=== PATIENT | female | born 1955 | race Caucasian/White ===

== ENCOUNTER → 2017-04-06 | Outpatient (CLI) | payer OTHER ==
--- NOTE | 2017-04-07 13:21 | MM ---
Reason for exam: screening (asymptomatic). Last mammogram was performed 2 years and 4 months ago. History: Patient is postmenopausal. Family history of breast cancer in sister at age 40. Physical Findings: A clinical breast exam by your physician is recommended on an annual basis and results should be correlated with mammographic findings. MG Screening Mammo w CAD Bilateral CC and MLO view(s) were taken. Prior study comparison: November 27, 2014, bilateral MG screening mammo w CAD. October 26, 2013, bilateral MG screening mammo w CAD. There are scattered fibroglandular densities. Finding: There are typically benign round, diffuse/scattered and grouped calcifications in the right breast. There is no discrete abnormality. ASSESSMENT: Benign, BI-RAD 2 RECOMMENDATION: Routine screening mammogram of both breasts in 1 year.
== END | disposition home or self-care (01) ==
LOC: RADMAMWWP 07:00
PROVIDERS: ATTEND Family Medicine
DX: Z12.31 Encounter for screening mammogram for malignant neoplasm of breast (principal)
CPT/HCPCS: 77067

== ENCOUNTER → 2018-04-07 | Outpatient (CLI) | payer OTHER ==
--- NOTE | 2018-04-07 15:53 | BD ---
EXAMINATION TYPE: Axial Bone Density DATE OF EXAM: 04/07/2018 COMPARISON: 07/30/2010 CLINICAL HISTORY: Postmenopausal female. Osteoporosis screening. Height: 64 IN Weight: 154 LBS FRAX RISK QUESTIONS: Secondary Osteoporosis: Current Tobacco Use: YES RISK FACTORS HISTORY OF: Active: YES Postmenopausal woman: AGE 52 MEDICATIONS: Additional Medications: VIT D, BLOOD PRESSURE MEDS, RESTLESS LEGS MEDS EXAM MEASUREMENTS: Bone mineral densitometry was performed using the [employer]. Bone mineral density as measured about the Lumbar spine is: ----- L1-L4(G/cm2): 1.021 T Score Values are as follows: ----- L2: -1.4 ----- L3: -1.6 ----- L4: -1.2 ----- L1-L4: -1.3 Bone mineral density has: Decreased -13.7% since study of: 07/30/2010 Bone mineral density about the R hip (g/cm2): 0.887 Bone mineral density about the L hip (g/cm2): 0.891 T Score values are as follows: -----R Neck: -1.1 -----L Neck: -1.1 -----R Total: -0.3 -----L Total: 0.1 Bone mineral density has: Decreased -7.4% since study of: 07/30/2010 IMPRESSION: Osteopenia (T Score between -2.5 and -1). There is slightly increased risk of fracture and the patient may be considered for treatment. Re-Screen 2-5 years. NOTE: T-SCORE=SD OF THE YOUNG ADULT MEAN.
--- NOTE | 2018-04-11 07:42 | MM ---
Reason for exam: screening (asymptomatic). Last mammogram was performed 1 year ago. History: Patient is postmenopausal. Family history of breast cancer in sister at age 40. Physical Findings: A clinical breast exam by your physician is recommended on an annual basis and results should be correlated with mammographic findings. MG Screening Mammo w CAD Bilateral CC and MLO view(s) were taken. Prior study comparison: April 06, 2017, bilateral MG screening mammo w CAD. November 27, 2014, bilateral MG screening mammo w CAD. There are scattered fibroglandular densities. Finding: There are four typically benign round, grouped/clustered calcifications in the lower outer quadrant, middle position of the right breast. There is a chronic nodularity in the right breast. No significant changes in finding since April 06, 2017. ASSESSMENT: Benign, BI-RAD 2 RECOMMENDATION: Routine screening mammogram of both breasts in 1 year.
== END | disposition home or self-care (01) ==
LOC: RADMAMWWP 14:21
PROVIDERS: ATTEND Family Medicine
DX: Z12.31 Encounter for screening mammogram for malignant neoplasm of breast (principal); M85.851 Other specified disorders of bone density and structure, right thigh; M85.852 Other specified disorders of bone density and structure, left thigh; M85.88 Other specified disorders of bone density and structure, other site; Z78.0 Asymptomatic menopausal state
CPT/HCPCS: 77067; 77080

== ENCOUNTER 2018-11-09 15:50 | Inpatient (IN) | payer OTHER ==
[2018-11-09] MEDS ORDERED: SODIUM CHLORIDE 0.9% 500 ML 500 ML IV STA (16:45)
[2018-11-09] MEDS ORDERED: SODIUM CHLORIDE 0.9% 1,000 ML IV STA ×2 (16:45)
[2018-11-09] MEDS ORDERED: MORPHINE SULFATE 4 MG/ML SYRINGE IV STA (16:45)
--- NOTE | 2018-11-09 16:51 | ED ---
Abdominal Pain HPI - General Chief Complaint: Abdominal Pain Stated Complaint: Abd Pain Time Seen by Provider: 11/09/18 16:14 Source: patient, RN notes reviewed, old records reviewed Mode of arrival: ambulatory Limitations: no limitations - History of Present Illness Initial Comments: This is a 63-year-old female the ER for evaluation presents today for evaluation regards to abdominal pain. Patient was seen by PA, right lower quadrant and epigastric severe abdominal pain 4 days. Nausea vomiting unable to eat. No appetite. Surgery history includes to prior studies. Positive nausea no current vomiting. No recent travel history or sick contacts. Patient again was seen at urgent care sent ER for further evaluation management. Patient states she feels very bloated with significant abdominal distention MD Complaint: abdominal pain (Right lower quadrant epigastric) -: days(s) (4) Location: RLQ, epigastric Radiation: RLQ Migration to: RLQ Severity: severe Severity scale (1-10): 8 Quality: cramping, stabbing Consistency: constant Improves With: nothing Worsens With: nothing Context: other (None) Associated Symptoms: nausea, vomiting, constipation Treatments Prior to Arrival: NSAIDs - Related Data Home Medications Medication Instructions Recorded Confirmed Ergocalciferol [Vitamin D2] 50,000 unit PO SA 11/09/18 11/09/18 Lisinopril-Hctz 20-12.5 mg 1 tab PO DAILY 11/09/18 11/09/18 [Zestoretic 20-12.5] Montelukast [Singulair] 10 mg PO HS 11/09/18 11/09/18 [place]-3/Dha/Epa/Fish Oil [Fish Oil 1 cap PO DAILY 11/09/18 11/09/18 500 mg Softgel] rOPINIRole HCL [Requip] 0.25 mg PO HS 11/09/18 11/09/18 Allergies Allergy/AdvReac Type Severity Reaction Status Date / Time Iodinated Contrast- Oral and Allergy Rash/Hives Verified 11/09/18 17:12 IV Dye Review of Systems ROS Statement: Those systems with pertinent positive or pertinent negative responses have been documented in the HPI. ROS Other: All systems not noted in ROS Statement are negative. Past Medical History Past Medical History: Hypertension Additional Past Medical History / Comment(s): restless Leg. Sinus History of Any Multi-Drug Resistant Organisms: None Reported Past Surgical History: Section Past Psychological History: No Psychological Hx Reported Smoking Status: Former smoker Past Alcohol Use History: None Reported Past Drug Use History: None Reported General Exam Limitations: no limitations General appearance: alert, in no apparent distress, anxious Head exam: Present: atraumatic, normocephalic, normal inspection Eye exam: Present: normal appearance, PERRL, EOMI. Absent: scleral icterus, conjunctival injection, periorbital swelling ENT exam: Present: normal exam, mucous membranes moist Neck exam: Present: normal inspection. Absent: tenderness, meningismus, lymphadenopathy Respiratory exam: Present: normal lung sounds bilaterally. Absent: respiratory distress, wheezes, rales, rhonchi, stridor Cardiovascular Exam: Present: regular rate, normal rhythm, normal heart sounds. Absent: systolic murmur, diastolic murmur, rubs, gallop, clicks GI/Abdominal exam: Present: soft, distended, tenderness, normal bowel sounds. Absent: guarding (Right lower quadrant), rebound, rigid Extremities exam: Present: normal inspection, full ROM, normal capillary refill. Absent: tenderness, pedal edema, joint swelling, calf tenderness Back exam: Present: normal inspection Neurological exam: Present: alert, oriented X3, CN II-XII intact Psychiatric exam: Present: normal affect, normal mood Skin exam: Present: warm, dry, intact, normal color. Absent: rash Course Vital Signs 11/09/18 11/09/18 11/09/18 15:54 18:36 19:00 Temperature 99 F 98.5 F Pulse Rate 99 94 84 Respiratory 20 18 18 Rate Blood Pressure 134/85 123/79 123/72 O2 Sat by Pulse 99 100 95 Oximetry 11/09/18 20:00 Temperature 98.6 F Pulse Rate 86 Respiratory 18 Rate Blood Pressure 116/68 O2 Sat by Pulse 95 Oximetry - Reevaluation(s) Reevaluation #1: 11/09/18 16:51 Medical records reviewed Reevaluation #2: 11/09/18 21:01 Patient's pain is controlled - Consultations Consultation #1: spoke with Dr Wilson who is okay for admission Medical Decision Making - Medical Decision Making 63 female the ER for evaluation of bowel pain severe acute cholecystitis, will admit, IV antibiotics and pain control, surgery consult - Lab Data Result diagrams: 11/09/18 16:36 11/09/18 16:36 Lab Results 11/09/18 11/09/18 11/09/18 Range/Units 16:36 16:36 16:36 WBC 15.0 H (3.8-10.6) k/uL RBC 4.73 (3.80-5.40) m/uL Hgb 13.9 (11.4-16.0) gm/dL Hct 41.6 (34.0-46.0) % MCV 88.0 (80.0-100.0) fL MCH 29.4 (25.0-35.0) pg MCHC 33.4 (31.0-37.0) g/dL RDW 14.5 (11.5-15.5) % Plt Count 319 (150-450) k/uL Neutrophils % 83 % Lymphocytes % 11 % Monocytes % 4 % Eosinophils % 0 % Basophils % 0 % Neutrophils # 12.4 H (1.3-7.7) k/uL Lymphocytes # 1.7 (1.0-4.8) k/uL Monocytes # 0.6 (0-1.0) k/uL Eosinophils # 0.1 (0-0.7) k/uL Basophils # 0.1 (0-0.2) k/uL PT 9.5 (9.0-12.0) sec INR 0.9 (<1.2) APTT 31.6 H (22.0-30.0) sec Sodium 137 (137-145) mmol/L Potassium 3.9 (3.5-5.1) mmol/L Chloride 95 L (98-107) mmol/L Carbon Dioxide 29 (22-30) mmol/L Anion Gap 13 mmol/L BUN 13 (7-17) mg/dL Creatinine 0.60 (0.52-1.04) mg/dL Est GFR (CKD-EPI)AfAm >90 (>60 ml/min/1.73 sqM) Est GFR (CKD-EPI)NonAf >90 (>60 ml/min/1.73 sqM) Glucose 129 H (74-99) mg/dL Plasma Lactic Acid Ramses (0.7-2.0) mmol/L Calcium 10.7 H (8.4-10.2) mg/dL Total Bilirubin 1.0 (0.2-1.3) mg/dL AST 31 (14-36) U/L ALT 51 (9-52) U/L Alkaline Phosphatase 110 (38-126) U/L Creatine Kinase 76 (30-135) U/L Troponin I (0.000-0.034) ng/mL Total Protein 7.8 (6.3-8.2) g/dL Albumin 4.8 (3.5-5.0) g/dL Amylase 56 (30-110) U/L Lipase 227 (23-300) U/L Urine Color Urine Appearance (Clear) Urine pH (5.0-8.0) Ur Specific [place] (1.001-1.035) Urine Protein (Negative) Urine Glucose (UA) (Negative) Urine Ketones (Negative) Urine Blood (Negative) Urine Nitrite (Negative) Urine Bilirubin (Negative) Urine Urobilinogen (<2.0) mg/dL Ur Leukocyte Esterase (Negative) Ur Squamous Epith Cells (0-4) /hpf Urine Mucus (None) /hpf 11/09/18 11/09/18 11/09/18 Range/Units 16:36 16:36 17:50 WBC (3.8-10.6) k/uL RBC (3.80-5.40) m/uL Hgb (11.4-16.0) gm/dL Hct (34.0-46.0) % MCV (80.0-100.0) fL MCH (25.0-35.0) pg MCHC (31.0-37.0) g/dL RDW (11.5-15.5) % Plt Count (150-450) k/uL Neutrophils % % Lymphocytes % % Monocytes % % Eosinophils % % Basophils % % Neutrophils # (1.3-7.7) k/uL Lymphocytes # (1.0-4.8) k/uL Monocytes # (0-1.0) k/uL Eosinophils # (0-0.7) k/uL Basophils # (0-0.2) k/uL PT (9.0-12.0) sec INR (<1.2) APTT (22.0-30.0) sec Sodium (137-145) mmol/L Potassium (3.5-5.1) mmol/L Chloride (98-107) mmol/L Carbon Dioxide (22-30) mmol/L Anion Gap mmol/L BUN (7-17) mg/dL Creatinine (0.52-1.04) mg/dL Est GFR (CKD-EPI)AfAm (>60 ml/min/1.73 sqM) Est GFR (CKD-EPI)NonAf (>60 ml/min/1.73 sqM) Glucose (74-99) mg/dL Plasma Lactic Acid Ramses 1.2 (0.7-2.0) mmol/L Calcium (8.4-10.2) mg/dL Total Bilirubin (0.2-1.3) mg/dL AST (14-36) U/L ALT (9-52) U/L Alkaline Phosphatase (38-126) U/L Creatine Kinase (30-135) U/L Troponin I <0.012 (0.000-0.034) ng/mL Total Protein (6.3-8.2) g/dL Albumin (3.5-5.0) g/dL Amylase (30-110) U/L Lipase (23-300) U/L Urine Color Yellow Urine Appearance Cloudy H (Clear) Urine pH 6.5 (5.0-8.0) Ur Specific [place] 1.024 (1.001-1.035) Urine Protein Trace H (Negative) Urine Glucose (UA) Negative (Negative) Urine Ketones 1+ H (Negative) Urine Blood Negative (Negative) Urine Nitrite Negative (Negative) Urine Bilirubin Negative (Negative) Urine Urobilinogen <2.0 (<2.0) mg/dL Ur Leukocyte Esterase Negative (Negative) Ur Squamous Epith Cells <1 (0-4) /hpf Urine Mucus Rare H (None) /hpf - Radiology Data Radiology results: report reviewed (CT abdomen pelvis ultrasound gallbladder consistent with cholecystitis), image reviewed Disposition Clinical Impression: Abdominal pain, Acute cholecystitis Disposition: ADMITTED IP TO THIS HOSP Condition: Good Is patient prescribed a controlled substance at d/c from ED?: No Referrals: Tamiko Vincent DO [Primary Care Provider] - 1-2 days
[2018-11-09 17:10] LABS: Appearance,Urine Cloudy (Clear); Bilirubin,Urine Negative (Negative); Blood,Urine Negative (Negative); Color,Urine Yellow; Glucose,Urine (UA) Negative (Negative); Ketones,Urine 1+ (Negative); Leukocyte Esterase,Urine Negative (Negative); Mucus,Urine Rare /hpf; Nitrite,Urine Negative (Negative); PH, Urine 6.5 (5.0-8.0); Protein,Urine Trace (Negative); Specific Gravity,Urine 1.024 (1.001-1.035); Squamous Epithelial Cell,Urine <1 /hpf (0-4); Urobilinogen,Urine <2.0 mg/dL (<2.0)
[2018-11-09 17:11] LABS: Basophils # (A) 0.1 k/uL (0-0.2); Basophils % (A) 0 %; Eosinophils # (A) 0.1 k/uL (0-0.7); Eosinophils % (A) 0 %; HCT 41.6 % (34.0-46.0); HGB 13.9 gm/dL (11.4-16.0); Lymphocytes # (A) 1.7 k/uL (1.0-4.8); Lymphocytes % (A) 11 %; MCH 29.4 pg (25.0-35.0); MCHC 33.4 g/dL (31.0-37.0); Mean Platelet Volume 7.2; Monocytes # (A) 0.6 k/uL (0-1.0); Monocytes % (A) 4 %; Neutrophils # (A) 12.4 k/uL (1.3-7.7); Neutrophils % (A) 83 %; Platelet Count 319 k/uL (150-450); RBC 4.73 m/uL (3.80-5.40); RDW 14.5 % (11.5-15.5)
[2018-11-09 17:19] LABS: ALT 51 U/L (9-52); AST 31 U/L (14-36); African American GFR (CKD) >90 (>60 ml/min/1.73 sqM); Albumin 4.8 g/dL (3.5-5.0); Alkaline Phosphatase 110 U/L (38-126); Amylase 56 U/L (30-110); Anion Gap 13 mmol/L; Blood Urea Nitrogen 13 mg/dL (7-17); Calcium 10.7 mg/dL (8.4-10.2); Carbon Dioxide 29 mmol/L (22-30); Chloride 95 mmol/L (98-107); Creatine Kinase 76 U/L (30-135); Glucose 129 mg/dL (74-99); INR 0.9 (<1.2); Partial Thromboplastin Time 31.6 sec (22.0-30.0); Potassium 3.9 mmol/L (3.5-5.1); Prothrombin Time 9.5 sec (9.0-12.0); Sodium 137 mmol/L (137-145); Total Protein 7.8 g/dL (6.3-8.2)
[2018-11-09] MEDS ORDERED: diphenhydrAMINE 50 MG/ML 1 ML VIAL IVP STA (17:55)
[2018-11-09] MEDS ORDERED: methylPREDNISolone SOD SUCCI 125 MG/2 ML VIAL IV STA (17:55)
[2018-11-09] MEDS ORDERED: FAMOTIDINE 20 MG/2 ML VIAL IV STA (17:55)
--- NOTE | 2018-11-09 19:11 | CT ---
EXAMINATION TYPE: CT abdomen pelvis w con DATE OF EXAM: 11/09/2018 COMPARISON: None HISTORY: Abdominal pain x5 days CT DLP: 864.2 mGycm Automated exposure control for dose reduction was used. TECHNIQUE: Helical acquisition of images was performed from the lung bases through the pelvis. CONTRAST: Performed without Oral Contrast and with IV Contrast, patient injected with 100 mL of Isovue 300. FINDINGS: There is mild atelectasis at the lung bases. There is no pleural effusion. Heart size is normal. Ther e is small hiatal hernia. Liver shows no focal defect. Bile ducts are not dilated. Spleen appears nor mal. There is no pancreatic mass. There is a markedly dilated gallbladder measures 7 cm in diameter. There is pericholecystic fat stranding and fluid. There are numerous calcified gallstones. The bile d ucts are not dilated. There is no adrenal mass. Kidneys show satisfactory contrast opacification. There is no hydronephrosi s. Ureters are not dilated. Appendix appears normal. Bladder distends smoothly. There is no inguinal hernia. There is no free fluid in the pelvis. There is no mesenteric edema. There is no ascites or fr ee air. Lumbar vertebra have normal alignment. Posterior elements are intact. Bony pelvis is intact. There are a few diverticula in the sigmoid colon. IMPRESSION: MARKEDLY DILATED GALLBLADDER WITH GALLSTONES AND PERICHOLECYSTIC FAT STRANDING SUGGESTIVE OF ACUTE AN D CHRONIC CHOLECYSTITIS. SIGMOID DIVERTICULOSIS WITHOUT DIVERTICULITIS.
--- NOTE | 2018-11-09 20:43 | US ---
EXAMINATION TYPE: US gallbladder DATE OF EXAM: 11/09/2018 COMPARISON: CT today 11/09/18. CLINICAL HISTORY: pain. Pain throughout abdomen. Worse in RUQ. HTN. Nausea. Vomiting. EXAM MEASUREMENTS: Liver Length: 15.6 cm Gallbladder Wall: 0.28 cm CBD: 0.80 cm Right Kidney: 10.1 x 4.8 x 5.2 cm Pancreas: appears wnl Liver: appears wnl Gallbladder: Appears distended measuring 10.9 cm in length. Multiple echogenic foci with posterior s hadowing seen within the gallbladder. Internal echoes seen. Evidence for sonographic Olivares's sign: yes CBD: appears dilated Right Kidney: No hydronephrosis or masses seen IMPRESSION: Numerous gallstones. Dilated gallbladder consistent with cholecystitis. No dilated ducts.
[2018-11-09] MEDS ORDERED: MORPHINE SULFATE 4 MG/ML SYRINGE IVP STA (20:59)
[2018-11-09] MEDS ORDERED: ONDANSETRON 4 MG/2 ML VIAL IVP PRN (20:59)
[2018-11-09] MEDS ORDERED: ONDANSETRON 4 MG/2 ML VIAL IVP STA (20:59)
[2018-11-09] MEDS ORDERED: PIPERACILLIN-TAZOBACTAM 3.375 GM in SODIUM CHLORIDE 0.9% 100 ML IVPB STA (20:59)
[2018-11-09 23:38] VITALS: BMI 27.1
[2018-11-10] MEDS: PIPERACILLIN-TAZOBACTAM 3.375 GM in SODIUM CHLORIDE 0.9% 100 ML IVPB SCH ×3 (05:00→21:55)
[2018-11-10 08:15] LABS: Basophils % (A) 0 %; Eosinophils % (A) 0 %; HCT 37.5 % (34.0-46.0); HGB 12.7 gm/dL (11.4-16.0); Lymphocytes # (A) 0.8 k/uL (1.0-4.8); Lymphocytes % (A) 8 %; MCH 30.3 pg (25.0-35.0); MCHC 33.9 g/dL (31.0-37.0); MCV 89.4 fL (80.0-100.0); Mean Platelet Volume 7.4; Monocytes # (A) 0.2 k/uL (0-1.0); Monocytes % (A) 2 %; Neutrophils # (A) 8.5 k/uL (1.3-7.7); Neutrophils % (A) 89 %; Platelet Count 285 k/uL (150-450); RDW 12.7 % (11.5-15.5); WBC 9.6 k/uL (3.8-10.6)
[2018-11-10 08:29] LABS: ALT 68 U/L (9-52); AST 41 U/L (14-36); African American GFR (CKD) >90 (>60 ml/min/1.73 sqM); Albumin 3.6 g/dL (3.5-5.0); Alkaline Phosphatase 84 U/L (38-126); Anion Gap 7 mmol/L; Blood Urea Nitrogen 13 mg/dL (7-17); Calcium 9.5 mg/dL (8.4-10.2); Carbon Dioxide 25 mmol/L (22-30); Chloride 106 mmol/L (98-107); Glucose 150 mg/dL (74-99); Sodium 138 mmol/L (137-145); Total Bilirubin 0.8 mg/dL (0.2-1.3); Total Protein 6.3 g/dL (6.3-8.2)
[2018-11-10] MEDS ORDERED: PANTOPRAZOLE 40 MG/10 ML VIAL IVP SCH (09:00)
[2018-11-10] MEDS: MORPHINE SULFATE 4 MG/ML SYRINGE IVP PRN ×2 (09:08→21:54)
--- NOTE | 2018-11-10 09:40 | P.GSHP ---
<Martina Jaramillo A - Last Filed: 11/10/18 09:38> History of Present Illness H&P Date: 11/10/18 Chief Complaint: abdominal pain CHIEF COMPLAINT: Abdominal pain HISTORY OF PRESENT ILLNESS: 63-year-old female who presents to emergency room with chief complaint of abdominal pain. Patient reports she has been experiencing abdominal pain intermittently for the past week. Pain is mostly in the right upper quadrant and radiates to her upper back. Reports nausea but denies episodes of vomiting. Denies fever or chills. Denies diarrhea or constipation. PAST MEDICAL HISTORY: See list. PAST SURGICAL HISTORY: See list. SOCIAL HISTORY: No illicit drug use. REVIEW OF SYSTEMS: CONSTITUTIONAL: Denies fever or chills. HEENT: Denies blurred vision, vision changes, or eye pain. Denies hemoptysis CARDIOVASCULAR: Denies chest pain or pressure. RESPIRATORY: No shortness of breath. GASTROINTESTINAL: Refer to [facility] for pertinent findings HEMATOLOGIC: Denies bleeding disorders. GENITOURINARY: Denies any blood in urine. SKIN: Denies pruitis. Denies rash. PHYSICAL EXAM: VITAL SIGNS: Reviewed. GENERAL: Well-developed in no acute distress. HEENT: No sclera icterus. Extraocular movements grossly intact. Moist buccal mucosa. Head is atraumatic, normocephalic. ABDOMEN: Soft. Nondistended. Tenderness with palpation to right upper quadrant. NEUROLOGIC: Alert and oriented. Cranial nerves II through XII grossly intact. LABORATORY DATA: WBC on admission 15.0. Repeat 9.6. Bilirubin 0.8. AST 41. ALT 68. Alkaline phosphatase 84. Amylase 56. Lipase 2026. IMAGIN. Gallbladder ultrasound: Numerous gallstones. Dilated gallbladder consistent with cholecystitis. No dilated ducts. 2. CT abdomen and pelvis: Markedly dilated gallbladder with gallstones and pericholecystic fat stranding suggestive of acute and chronic cholecystitis. Sigmoid diverticulosis without diverticulitis. ASSESSMENT: 1. Right upper quadrant abdominal pain 1 week 2. Acute cholecystitis 3. Leukocytosis 4. Diverticulosis, no evidence of acute diverticulitis PLAN: 1. NPO. Continue IV fluids 2. Continue antibiotics. Monitor WBC 3. Patient to undergo laparoscopic cholecystectomy today with Dr. Wilson. Nurse practitioner note has been reviewed by physician. Signing provider agrees with the documented findings, assessment, and plan of care. Past Medical History Past Medical History: Hypertension Additional Past Medical History / Comment(s): restless Leg. Sinus History of Any Multi-Drug Resistant Organisms: None Reported Past Surgical History: Section Past Psychological History: No Psychological Hx Reported Smoking Status: Former smoker Past Alcohol Use History: None Reported Past Drug Use History: None Reported Medications and Allergies Home Medications Medication Instructions Recorded Confirmed Type Ergocalciferol [Vitamin D2] 50,000 unit PO SA 11/09/18 11/09/18 History Lisinopril-Hctz 20-12.5 mg 1 tab PO DAILY 11/09/18 11/09/18 History [Zestoretic 20-12.5] Montelukast [Singulair] 10 mg PO HS 11/09/18 11/09/18 History [place]-3/Dha/Epa/Fish Oil [Fish Oil 1 cap PO DAILY 11/09/18 11/09/18 History 500 mg Softgel] rOPINIRole HCL [Requip] 0.25 mg PO HS 11/09/18 11/09/18 History Allergies Allergy/AdvReac Type Severity Reaction Status Date / Time Iodinated Contrast- Oral and Allergy Rash/Hives Verified 11/09/18 17:12 IV Dye Surgical - Exam Vital Signs Temp Pulse Resp BP Pulse Ox 99 F 99 20 134/85 99 11/09/18 15:54 11/09/18 15:54 11/09/18 15:54 11/09/18 15:54 11/09/18 15:54 Results - Labs 11/10/18 07:21 11/10/18 07:21 Abnormal Lab Results - Last 24 Hours (Table) 11/09/18 11/09/18 11/09/18 Range/Units 16:36 16:36 16:36 WBC 15.0 H (3.8-10.6) k/uL Neutrophils # 12.4 H (1.3-7.7) k/uL Lymphocytes # (1.0-4.8) k/uL APTT 31.6 H (22.0-30.0) sec Chloride 95 L (98-107) mmol/L Glucose 129 H (74-99) mg/dL Calcium 10.7 H (8.4-10.2) mg/dL AST (14-36) U/L ALT (9-52) U/L Urine Appearance (Clear) Urine Protein (Negative) Urine Ketones (Negative) Urine Mucus (None) /hpf 11/09/18 11/10/18 11/10/18 Range/Units 16:36 07:21 07:21 WBC (3.8-10.6) k/uL Neutrophils # 8.5 H (1.3-7.7) k/uL Lymphocytes # 0.8 L (1.0-4.8) k/uL APTT (22.0-30.0) sec Chloride (98-107) mmol/L Glucose 150 H (74-99) mg/dL Calcium (8.4-10.2) mg/dL AST 41 H (14-36) U/L ALT 68 H (9-52) U/L Urine Appearance Cloudy H (Clear) Urine Protein Trace H (Negative) Urine Ketones 1+ H (Negative) Urine Mucus Rare H (None) /hpf Diabetes panel 11/09/18 11/10/18 Range/Units 16:36 07:21 Sodium 137 138 (137-145) mmol/L Potassium 3.9 4.0 (3.5-5.1) mmol/L Chloride 95 L 106 (98-107) mmol/L Carbon Dioxide 29 25 (22-30) mmol/L BUN 13 13 (7-17) mg/dL Creatinine 0.60 0.62 (0.52-1.04) mg/dL Glucose 129 H 150 H (74-99) mg/dL Calcium 10.7 H 9.5 (8.4-10.2) mg/dL AST 31 41 H (14-36) U/L ALT 51 68 H (9-52) U/L Alkaline Phosphatase 110 84 (38-126) U/L Total Protein 7.8 6.3 (6.3-8.2) g/dL Albumin 4.8 3.6 (3.5-5.0) g/dL Calcium panel 11/09/18 11/10/18 Range/Units 16:36 07:21 Calcium 10.7 H 9.5 (8.4-10.2) mg/dL Albumin 4.8 3.6 (3.5-5.0) g/dL Pituitary panel 11/09/18 11/10/18 Range/Units 16:36 07:21 Sodium 137 138 (137-145) mmol/L Potassium 3.9 4.0 (3.5-5.1) mmol/L Chloride 95 L 106 (98-107) mmol/L Carbon Dioxide 29 25 (22-30) mmol/L BUN 13 13 (7-17) mg/dL Creatinine 0.60 0.62 (0.52-1.04) mg/dL Glucose 129 H 150 H (74-99) mg/dL Calcium 10.7 H 9.5 (8.4-10.2) mg/dL Adrenal panel 11/09/18 11/10/18 Range/Units 16:36 07:21 Sodium 137 138 (137-145) mmol/L Potassium 3.9 4.0 (3.5-5.1) mmol/L Chloride 95 L 106 (98-107) mmol/L Carbon Dioxide 29 25 (22-30) mmol/L BUN 13 13 (7-17) mg/dL Creatinine 0.60 0.62 (0.52-1.04) mg/dL Glucose 129 H 150 H (74-99) mg/dL Calcium 10.7 H 9.5 (8.4-10.2) mg/dL Total Bilirubin 1.0 0.8 (0.2-1.3) mg/dL AST 31 41 H (14-36) U/L ALT 51 68 H (9-52) U/L Alkaline Phosphatase 110 84 (38-126) U/L Total Protein 7.8 6.3 (6.3-8.2) g/dL Albumin 4.8 3.6 (3.5-5.0) g/dL <Jagdeep Wilson - Last Filed: 11/10/18 15:33> Surgical - Exam Vital Signs Temp Pulse Resp BP Pulse Ox 99 F 99 20 134/85 99 11/09/18 15:54 11/09/18 15:54 11/09/18 15:54 11/09/18 15:54 11/09/18 15:54 Results - Labs 11/10/18 07:21 11/10/18 07:21 Abnormal Lab Results - Last 24 Hours (Table) 11/09/18 11/09/18 11/09/18 Range/Units 16:36 16:36 16:36 WBC 15.0 H (3.8-10.6) k/uL Neutrophils # 12.4 H (1.3-7.7) k/uL Lymphocytes # (1.0-4.8) k/uL APTT 31.6 H (22.0-30.0) sec Chloride 95 L (98-107) mmol/L Glucose 129 H (74-99) mg/dL Calcium 10.7 H (8.4-10.2) mg/dL AST (14-36) U/L ALT (9-52) U/L Urine Appearance (Clear) Urine Protein (Negative) Urine Ketones (Negative) Urine Mucus (None) /hpf 11/09/18 11/10/18 11/10/18 Range/Units 16:36 07:21 07:21 WBC (3.8-10.6) k/uL Neutrophils # 8.5 H (1.3-7.7) k/uL Lymphocytes # 0.8 L (1.0-4.8) k/uL APTT (22.0-30.0) sec Chloride (98-107) mmol/L Glucose 150 H (74-99) mg/dL Calcium (8.4-10.2) mg/dL AST 41 H (14-36) U/L ALT 68 H (9-52) U/L Urine Appearance Cloudy H (Clear) Urine Protein Trace H (Negative) Urine Ketones 1+ H (Negative) Urine Mucus Rare H (None) /hpf Diabetes panel 11/09/18 11/10/18 Range/Units 16:36 07:21 Sodium 137 138 (137-145) mmol/L Potassium 3.9 4.0 (3.5-5.1) mmol/L Chloride 95 L 106 (98-107) mmol/L Carbon Dioxide 29 25 (22-30) mmol/L BUN 13 13 (7-17) mg/dL Creatinine 0.60 0.62 (0.52-1.04) mg/dL Glucose 129 H 150 H (74-99) mg/dL Calcium 10.7 H 9.5 (8.4-10.2) mg/dL AST 31 41 H (14-36) U/L ALT 51 68 H (9-52) U/L Alkaline Phosphatase 110 84 (38-126) U/L Total Protein 7.8 6.3 (6.3-8.2) g/dL Albumin 4.8 3.6 (3.5-5.0) g/dL Calcium panel 11/09/18 11/10/18 Range/Units 16:36 07:21 Calcium 10.7 H 9.5 (8.4-10.2) mg/dL Albumin 4.8 3.6 (3.5-5.0) g/dL Pituitary panel 11/09/18 11/10/18 Range/Units 16:36 07:21 Sodium 137 138 (137-145) mmol/L Potassium 3.9 4.0 (3.5-5.1) mmol/L Chloride 95 L 106 (98-107) mmol/L Carbon Dioxide 29 25 (22-30) mmol/L BUN 13 13 (7-17) mg/dL Creatinine 0.60 0.62 (0.52-1.04) mg/dL Glucose 129 H 150 H (74-99) mg/dL Calcium 10.7 H 9.5 (8.4-10.2) mg/dL Adrenal panel 11/09/18 11/10/18 Range/Units 16:36 07:21 Sodium 137 138 (137-145) mmol/L Potassium 3.9 4.0 (3.5-5.1) mmol/L Chloride 95 L 106 (98-107) mmol/L Carbon Dioxide 29 25 (22-30) mmol/L BUN 13 13 (7-17) mg/dL Creatinine 0.60 0.62 (0.52-1.04) mg/dL Glucose 129 H 150 H (74-99) mg/dL Calcium 10.7 H 9.5 (8.4-10.2) mg/dL Total Bilirubin 1.0 0.8 (0.2-1.3) mg/dL AST 31 41 H (14-36) U/L ALT 51 68 H (9-52) U/L Alkaline Phosphatase 110 84 (38-126) U/L Total Protein 7.8 6.3 (6.3-8.2) g/dL Albumin 4.8 3.6 (3.5-5.0) g/dL Assessment and Plan Plan: Cholecystitis. Patient will undergo laparoscopic cholecystectomy today.
[2018-11-10] MEDS: HEPARIN SODIUM,PORCINE 5,000 UNIT/ML 1 ML VIAL SQ SCH ×3 (09:58→23:49)
[2018-11-10] MEDS: SODIUM CHLORIDE 0.9% 1,000 ML IV SCH ×2 (12:37→21:12)
[2018-11-10] MEDS ORDERED: BUPIVACAINE (PF) 0.25% 30 ML VIAL SQ ONE (14:02)
[2018-11-10] MEDS ORDERED: IV FLUID CONTINUATION 1,000 ML IV ONE (15:25)
[2018-11-10] MEDS ORDERED: ONDANSETRON 4 MG/2 ML VIAL IVP ONE (15:35)
[2018-11-10] MEDS ORDERED: DEXAMETHASONE SOD PHOSPHATE 10 MG/ML 1 ML VIAL IV ONE (15:35)
[2018-11-10] MEDS ORDERED: MIDAZOLAM 2 MG/2 ML VIAL ONE (15:46)
[2018-11-10] MEDS ORDERED: SUCCINYLCHOLINE CHLORIDE 100 MG/5 ML SYR IV ONE (15:46)
[2018-11-10] MEDS ORDERED: ROCURONIUM BROMIDE 10 MG/ML 10 ML VIAL IV ONE (15:46)
[2018-11-10] MEDS ORDERED: GLYCOPYRROLATE 0.2 MG/ML 2 ML VIAL ONE (15:46)
[2018-11-10] MEDS ORDERED: LIDOCAINE 1% INJ 10MG/ML (20 ML MDV) ONE (15:46)
[2018-11-10] MEDS ORDERED: PROPOFOL 10 MG/ML 20 ML VIAL IV ONE (15:46)
[2018-11-10] MEDS ORDERED: fentaNYL (PF) 50 MCG/ML 2 ML AMP ONE (15:46)
[2018-11-10] MEDS ORDERED: KETOROLAC 30 MG/ML 1 ML VIAL ONE (15:46)
[2018-11-10] MEDS ORDERED: NEOSTIGMINE 1 MG/ML 10 ML VIAL ONE (15:46)
[2018-11-10] MEDS ORDERED: LACTATED RINGERS 1,000 ML IV ONE ×2 (16:32)
--- NOTE | 2018-11-10 16:41 | P.OP ---
Date of Procedure: 11/10/18 Preoperative Diagnosis: Cholecystitis Postoperative Diagnosis: Cholecystitis Cholelithiasis Procedure(s) Performed: Laparoscopic cholecystectomy Anesthesia: YAA Surgeon: Jagdeep Wilson Estimated Blood Loss (ml): 5 Pathology: other (Gallbladder) Condition: stable Disposition: PACU Description of Procedure: The patient was placed on the operating table. The patient received a general endotracheal tube anesthesia. The patients abdomen was prepped and draped in the usual sterile fashion. Through an infraumbilical stab incision, the fascia of the anterior abdominal wall was grasped with a pair of Kochers and then the Veress needle was placed in the peritoneal cavity. Position of the Veress needle was confirmed with positive drop test. The abdomen was then insufflated. After adequate insufflation, the 10 mm trocar was placed in the peritoneal cavity. Following this the laparoscope was placed in the peritoneal cavity. The patient was placed in the head-up, right side up position and then a 5 mm trocar was placed in the right lateral and right subcostal position under direct visualization. A 8 mm trocar was placed in the epigastric position. The gallbladder was grasped in the fundus and infundibulum. Traction on the gallbladder was placed in the lateral and the cephalad positions. The triangle of Calot was visualized.. The cystic duct was bluntly dissected until the union of the cystic duct and common bile duct was seen. A critical view of safety was achieved. The cystic duct was then divided and sealed with the Harmonic scissors. A PDS Endoloop was then placed throughout the cystic duct stump. The cystic artery divided and sealed with the Harmonic scissors. The gallbladder was then removed from the liver bed using Harmonic scissors. The gallbladder was then extracted through the epigastric port site. Operative field was checked for any bleeding spots and Harmonic scissors was used to coagulate the liver bed. The abdomen was irrigated. The trocars were removed. The skin was closed using interrupted 3-0 Vicryl suture. Dermabond dressing were applied. The patient tolerated the procedure well.
[2018-11-10] MEDS ORDERED: HYDROmorphone 1 MG/ML 1 ML SYRINGE IVP ONE ×4 (16:47→17:11)
[2018-11-10] MEDS ORDERED: HYDROmorphone 1 MG/ML 1 ML SYRINGE IVP STA (18:34)
[2018-11-10] MEDS: MONTELUKAST 10 MG TAB PO SCH (21:12)
[2018-11-10] MEDS ORDERED: IPRATROPIUM-ALBUTEROL 3 ML NEB INHALATION PRN (23:58)
--- NOTE | 2018-11-10 23:58 | XR ---
EXAM: XR Chest, 1 View CLINICAL HISTORY: ITS.REASON XR Reason: Chest pain TECHNIQUE: Frontal view of the chest. COMPARISON: No relevant prior studies available. FINDINGS: Lungs: Linear opacities at the bases represent scarring and/or subsegmental atelectasis. Pleural space: Unremarkable. No pneumothorax. Heart: Unremarkable. No cardiomegaly. Mediastinum: Unremarkable. Bones/joints: Unremarkable. Vasculature: Ectatic thoracic aortic arch with atherosclerotic calcifications. IMPRESSION: No acute cardiopulmonary disease.
[2018-11-11] MEDS: PANTOPRAZOLE 40 MG/10 ML VIAL IVP SCH ×2 (00:08→08:29)
[2018-11-11] MEDS: LORazepam 1 MG TAB PO PRN ×2 (00:09→21:19)
[2018-11-11] MEDS: IPRATROPIUM-ALBUTEROL 3 ML NEB INHALATION SCH ×4 (00:42→19:46)
[2018-11-11] MEDS: PIPERACILLIN-TAZOBACTAM 3.375 GM in SODIUM CHLORIDE 0.9% 100 ML IVPB SCH ×3 (05:38→21:12)
[2018-11-11] MEDS: SODIUM CHLORIDE 0.9% 1,000 ML IV SCH ×3 (05:38→17:49)
[2018-11-11] MEDS: MORPHINE SULFATE 4 MG/ML SYRINGE IVP PRN ×3 (05:42→21:19)
[2018-11-11 07:26] LABS: Basophils % (A) 0 %; Eosinophils % (A) 0 %; HCT 35.9 % (34.0-46.0); HGB 11.6 gm/dL (11.4-16.0); Lymphocytes # (A) 1.1 k/uL (1.0-4.8); Lymphocytes % (A) 10 %; MCH 30.1 pg (25.0-35.0); MCHC 32.4 g/dL (31.0-37.0); MCV 93.1 fL (80.0-100.0); Mean Platelet Volume 7.2; Monocytes # (A) 0.4 k/uL (0-1.0); Monocytes % (A) 4 %; Neutrophils # (A) 9.6 k/uL (1.3-7.7); Neutrophils % (A) 85 %; Platelet Count 267 k/uL (150-450); RBC 3.86 m/uL (3.80-5.40); WBC 11.3 k/uL (3.8-10.6)
[2018-11-11 07:45] LABS: African American GFR (CKD) >90 (>60 ml/min/1.73 sqM); Albumin 3.4 g/dL (3.5-5.0); Anion Gap 9 mmol/L; Blood Urea Nitrogen 20 mg/dL (7-17); Calcium 8.9 mg/dL (8.4-10.2); Carbon Dioxide 24 mmol/L (22-30); Chloride 105 mmol/L (98-107); Glucose 133 mg/dL (74-99); Sodium 138 mmol/L (137-145); Total Bilirubin 1.2 mg/dL (0.2-1.3)
[2018-11-11 08:21] LABS: ALT 64 U/L (9-52); AST 43 U/L (14-36); Alkaline Phosphatase 59 U/L (38-126); Potassium 4.2 mmol/L (3.5-5.1)
[2018-11-11] MEDS: LISINOPRIL-HCTZ 20-12.5 MG 1 EACH TAB PO SCH (08:29)
[2018-11-11] MEDS: HEPARIN SODIUM,PORCINE 5,000 UNIT/ML 1 ML VIAL SQ SCH ×3 (08:29→23:55)
--- NOTE | 2018-11-11 10:28 | CONS ---
CONSULTATION REASON FOR CONSULTATION: Advice regarding chest pain and other multiple medical problems requested by Surgery. HISTORY OF PRESENT ILLNESS: This 63-year-old woman with a past medical history of multiple medical problems including hypertension, and being followed Dr. Tamiko Vincent in the outpatient setting admitted after laparoscopic cholecystectomy for cholecystitis and cholelithiasis by Dr. Wilson. The patient is currently complaining of some abdominal discomfort and chest pain also and the troponins are negative. EKG also did not show any acute abnormality. Patient will be closely monitored at this time. There is no history of any fever, rigors. No history of headache, loss of consciousness or seizures. Patient is on broad-spectrum IV antibiotics. WBC was 15 initially, currently is 9.6. PAST MEDICAL HISTORY: History of hypertension, restless legs syndrome, section. MEDICATIONS: Home medications are: 1. [place]-3 fatty acids one p.o. daily. 2. Lisinopril hydrochlorothiazide 20/12.5 mg 1 p.o. daily. 3. Requip 0.25 mg q.h.s. 4. Singulair 10 mg q.h.s. 5. Vitamin D2, 50,000 p.o. Tuesday. 6. [place] 5 mg q.6 p.r.n. 7. Colace 100 mg p.o. b.i.d. ALLERGIES: IODINATED CONTRAST DYE. FAMILY HISTORY: No history of heart disease or strokes in the family. SOCIAL HISTORY: Previous history of smoking. No history of current smoking or alcohol intake. REVIEW OF SYSTEMS: ENT: No diminished hearing or diminished vision. CARDIOVASCULAR SYSTEM: As mentioned earlier. RESPIRATORY SYSTEM: As mentioned earlier. GI: As mentioned earlier. : No dysuria. NERVOUS SYSTEM: No numbness or weakness. ALLERGY/IMMUNOLOGY: No history of asthma. MUSCULOSKELETAL: As mentioned earlier. HEMATOLOGY/ONCOLOGY: No history of anemia. ENDOCRINE: No history of diabetes or hypothyroidism. CONSTITUTIONAL: As mentioned earlier. DERMATOLOGY: Negative. PSYCHIATRY: As mentioned earlier. PHYSICAL EXAMINATION: The patient is alert and oriented x3. Pulse 96, blood pressure 118/68, respiration 20, temperature 98.7, pulse ox 96% on room air. HEENT: Conjunctivae normal. NECK: No jugular venous distention. CARDIOVASCULAR: S1, S2, muffled. RESPIRATORY: Breath sounds diminished at the bases. No rhonchi, no crackles. ABDOMEN: Soft. Mild diffuse postoperative tenderness. No guarding. No rigidity. No mass palpable. Bowel sounds diminished. No ascites . LEGS: No edema, no swelling. NERVOUS SYSTEM: Higher function as mentioned earlier. Moves all 4 limbs. No focal motor or sensory deficits. LYMPHATICS: No lymphadenopathy of the neck, axillae or groin. SKIN: No ulcer, rash or bleeding. JOINTS: No active deforming arthropathy. LABS: WBC 9.2, hemoglobin 12.7, sodium 138, potassium 4. AST is 41, ALT 68. Troponin less than 0.012. ASSESSMENT: 1. Chest pain, abdominal pain postoperatively for evaluation. 2. Status post laparoscopic cholecystectomy for cholelithiasis and cholecystitis. 3. Elevated AST, ALT. 4. Increased WBC present on admission. 5. Elevated random blood sugar. 6. Elevated calcium, present on admission. 7. Hypertension. 8. Restless legs syndrome. 9. History of section. 10.Remote history of nicotine dependence. RECOMMENDATIONS AND DISCUSSION: This 63-year-old woman who presented after surgery at this time I recommend to continue current medications and symptomatic treatment is recommended, proton pump inhibitors. Otherwise, I would also recommend broad-spectrum IV antibiotics. Closely follow with Surgery. DVT prophylaxis. Full cardiac workup including troponins. Further recommendations to follow. A copy forwarded to Dr. Tamiko Vincent who is the primary physician. Thank you Dr. Wilson. ROBIN / LUIS: [id number] / MTDRohini
--- NOTE | 2018-11-11 12:29 | P.PN ---
Subjective Progress Note Date: 11/11/18 CHIEF COMPLAINT: Acute cholecystitis HISTORY OF PRESENT ILLNESS: The patient is a 63-year-old female postop day 1 status post cholecystectomy, 11/10/2018. She reports moderate pain. She is on regular diet. ROS: No reports of nausea and vomiting. No bowel movements. No fevers or chills. No new chest pain. No productive sputum PHYSICAL EXAM: VITAL SIGNS: Reviewed CONSTITUTIONAL: Well developed and in no acute distress. EYES: Conjuctivae without sclera icterus. Extraocular movements grossly intact. HEAD, EARS, NOSE, THROAT: Moist buccal mucosa. Head is atraumatic, normocephalic. Hears conversational speech. No nasal drainage. NECK: Supple. No thyroidomegaly. RESPIRATORY: Non-labored respirations and equal bilateral excursions. CARDIOVASCULAR: Palpable 2+ radial pulses. Regular rate. Regular rhythm. ABDOMEN: Incisions clean dry and intact. No peritonitis. MUSCULOSKELETAL: No gross deformity of the lower extremities noted. No clubbing. No cyanosis. SKIN: Good skin turgor. Well perfused. NEUROLOGIC: Cranial nerves I through XII grossly intact. No focal or lateralizing signs. PSYCH: Appropriate affect. Alert and oriented to person, place and time. CLINCAL LABS: White blood cell count elevated at 13,000. LFTs mildly elevated ASSESSMENT: 1. Acute cholecystitis PLAN: 1. Adjustment of medications for pain control 2. Discharge pending tolerating diet and pain management Objective - Vital Signs Vital signs: Vital Signs Temp 98.1 F 11/11/18 07:10 Pulse 91 11/11/18 07:10 Resp 18 11/11/18 07:10 BP 113/72 11/11/18 07:10 Pulse Ox 93 L 11/11/18 07:10 Intake & Output 11/10/18 11/11/18 11/11/18 18:59 06:59 18:59 Intake Total 1900 460 240 Output Total 20 Balance 1880 460 240 Intake: IV 1800 Sodium Chloride 0.9% 1, 800 000 ml @ 100 mls/hr IV . Q10H [facility] Rx#:[id number] Intake, IV Titration 100 Amount Piperacillin-Tazobactam 3 100 .375 gm In Sodium Chloride 0.9% 100 ml @ 25 mls/hr IVPB Q8H [facility] Rx#: [id number] Oral 100 360 240 Output: Estimated Blood Loss 20 Other: Voiding Method Toilet Toilet # Voids 1 - Labs CBC & Chem 7: 11/11/18 06:50 11/11/18 06:50 Labs: Abnormal Lab Results - Last 24 Hours (Table) 11/11/18 11/11/18 Range/Units 06:50 06:50 WBC 11.3 H (3.8-10.6) k/uL Neutrophils # 9.6 H (1.3-7.7) k/uL BUN 20 H (7-17) mg/dL Glucose 133 H (74-99) mg/dL AST 43 H (14-36) U/L ALT 64 H (9-52) U/L Total Protein 6.0 L (6.3-8.2) g/dL Albumin 3.4 L (3.5-5.0) g/dL Assessment and Plan (1) Abdominal pain Current Visit: Yes Status: Acute Code(s): R10.9 - UNSPECIFIED ABDOMINAL PAIN SNOMED Code(s): 12202970 (2) Acute cholecystitis Current Visit: Yes Status: Acute Code(s): K81.0 - ACUTE CHOLECYSTITIS SNOMED Code(s): 89918241
[2018-11-11] MEDS: KETOROLAC 30 MG/ML 1 ML VIAL IVP SCH ×3 (14:28→23:55)
--- NOTE | 2018-11-11 16:46 | PN ---
PROGRESS NOTE DATE OF SERVICE: 11/11/2018 This 63-year-old woman who underwent laparoscopic cholecystectomy for cholelithiasis and cholecystitis complaining of diffuse abdominal pain and chest pain also. The chest pain is more constricting type of pain, sometimes also increased with respiration. A chest x-ray was done which I reviewed personally which showed no acute pulmonary abnormality. The patient also had an EKG and set of troponins. Also patient closely monitored. PAST MEDICAL HISTORY: Reviewed. REVIEW OF SYSTEM: CARDIOVASCULAR SYSTEM: As mentioned earlier. RESPIRATORY SYSTEM: As mentioned earlier. GI: As mentioned earlier. : No dysuria. NERVOUS SYSTEM: No numbness or weakness. CURRENT MEDICATIONS: Current medications are reviewed and include: 1. DuoNeb t.i.d. and p.r.n. 2. Zestoretic 20 mg daily. 3. Heparin 5000 subcu q.8. 4. Dilaudid 0.5 q.3 p.r.n. 5. Toradol 30 mg q.6. 6. Ativan 0.5 mg p.r.n. 7. Zofran. 8. Protonix. 9. Zosyn IV. 10.Requip. PHYSICAL EXAM: Patient is alert and oriented x3. Pulse is 88, blood pressure 118/68, respiration 18, temperature 99.2, pulse ox 91% on room air. HEENT: Conjunctivae normal. NECK: No jugular venous distention. CARDIOVASCULAR: S1, S2 muffled. RESPIRATORY: Breath sounds diminished in the bases. A few scattered rhonchi. ABDOMEN: Soft, status post surgery. No guarding. No rigidity. No mass palpable. LEGS: No edema. NERVOUS SYSTEM: No focal deficits. LABS: WBC 11.3, hemoglobin 11.6, sodium 138, potassium 4.2. AST, ALT noted as stable. Albumin noted. ASSESSMENT: 1. Chest pain, abdominal pain postoperatively for evaluation. 2. Rule out coronary artery disease. 3. Status post laparoscopic cholecystectomy for cholelithiasis and cholecystitis. 4. Elevated AST, ALT. 5. Increased WBC, present on admission. 6. Elevated random blood sugar. 7. Elevated calcium, present on admission, improved. 8. Hypertension. 9. History of restless legs syndrome. 10.History of section. 11.Remote history of nicotine dependence. RECOMMENDATIONS AND DISCUSSION: Recommend to continue current medications, continue symptomatic treatment. Otherwise, at this time, I recommend proton pump inhibitors. Repeat labs. Troponins are negative so far. Cardiology consultation. Continue to monitor. Follow with Surgery. Further recommendations to follow. MMODL / IJN: [id number] / HAILEY
[2018-11-11] MEDS: PANTOPRAZOLE 40 MG TABLET PO SCH (21:11)
[2018-11-11] MEDS: MONTELUKAST 10 MG TAB PO SCH (21:11)
[2018-11-12] MEDS: PIPERACILLIN-TAZOBACTAM 3.375 GM in SODIUM CHLORIDE 0.9% 100 ML IVPB SCH ×3 (06:14→21:30)
[2018-11-12] MEDS: KETOROLAC 30 MG/ML 1 ML VIAL IVP SCH ×3 (06:14→17:29)
[2018-11-12] MEDS: IPRATROPIUM-ALBUTEROL 3 ML NEB INHALATION SCH ×3 (08:57→20:29)
[2018-11-12] MEDS: SODIUM CHLORIDE 0.9% 1,000 ML IV SCH ×4 (09:47→21:25)
[2018-11-12] MEDS: HEPARIN SODIUM,PORCINE 5,000 UNIT/ML 1 ML VIAL SQ SCH ×2 (09:48→17:29)
[2018-11-12] MEDS: LISINOPRIL-HCTZ 20-12.5 MG 1 EACH TAB PO SCH (09:48)
[2018-11-12] MEDS: PANTOPRAZOLE 40 MG TABLET PO SCH ×2 (09:49→21:25)
--- NOTE | 2018-11-12 11:36 | P.CRDCN ---
History of Present Illness History of present illness: This is a pleasant 63-year-old female past medical history significant for hypertension and chronic nicotine dependence. She states she quit smoking 4 weeks ago. She presented to the hospital with symptoms of abdominal discomfort and was diagnosed with acute cholecystitis. She underwent laparoscopic cholecystectomy Tuesday with Dr. Bhakta. We've been asked to see her in [facility] sultation secondary to chest discomfort. She states yesterday while sitting down she developed a sharp pain in the midsternal region that radiated through to the back. The pain was worse with deep inspiration. She states she has been coughing since surgery and each time she coughs she feels this sharp pain. She denies any associated palpitations, nausea, vomiting, diaphoresis or shortness of breath. EKG obtained prior to surgery revealed sinus mechanism with no acute ST or T wave abnormalities noted. There is not been a repeat EKG since surgery. Chest x-ray is negative for an acute cardiopulmonary process. Laboratory data reviewed, WBC 11.3, hemoglobin 11.6, platelets 267 sodium 138, p otassium 4.2, creatinine 0.74, cardiac enzymes negative 2, AST 43, ALT 64 d- dimer request is 4.38. Current daily cardiac medications include lisinopril/HCTZ 20/12.5 mg daily. At the time of my exam: CONSTITUTIONAL: Denies fever. Denies chills. EYES: Denies blurred vision. Denies vision changes. Denies eye pain. EARS, NOSE, MOUTH & THROAT: Denies headache. Denies sore throat. Denies ear pain. CARDIOVASCULAR: Denies chest pain. Denies shortness of breath. Denies orthopnea. Denies PND. Denies palpitations. RESPIRATORY: Denies cough. GASTROINTESTINAL: Denies abdominal pain. Denies diarrhea. Denies constipation. Denies nausea. Denies vomiting. MUSCULOSKELETAL: Denies myalgias. INTEGUMENTARY: Denies pruitis. Denies rash. NEUROLOGIC: Denies numbness. Denies tingling. Denies weakness. PSYCHIATRIC: Denies anxiety. Denies depression. ENDOCRINE: Denies fatigue. Denies weight change. Denies polydipsia. Denies polyurina. GENITOURINARY: Denies burning, hematuria or urgency with micturation. HEMATOLOGIC: Denies history of anemia. Denies bleeding. Blood pressure 114/75 heart rate 109 temperature of 100.9F maintaining oxygen saturation on room air GENERAL: This is a 63-year-old female in no apparent distress at the time of my examination. HEENT: Head is atraumatic, normocephalic. Pupils are equal, round. Sclerae anicteric. Conjunctivae are clear. Mucous membranes of the mouth are moist. Neck is supple. There is no jugular venous distention. No carotid bruit is heard. LUNGS: Clear to auscultation no wheezes, rales or rhonchi. No chest wall tenderness is noted on palpation or with deep breathing. HEART: Regular rate and rhythm without murmurs, rubs or gallops. S1 and S2 hear d. ABDOMEN: Soft, mildly tender. Bowel sounds are heard. No organomegaly noted. EXTREMITIES: No evidence of peripheral edema and no calf tenderness noted. VASCULAR: Radial and dorsalis pedis pulses palpated, no evidence of clubbing. NEUROLOGIC: Patient is awake, alert and oriented x3. ASSESSMENT Pleuritic chest pain, atypical for angina. Status post cholecystectomy Hypertension PLAN Repeat EKG. D-dimer was requested and came to be abnormal. We will request a stat CTA of the chest to rule out pulmonary embolism. Obtain 2-D echocardiogram and Doppler study to assess cardiac structure and function. Thank you kindly for this consultation. Nurse Practitioner note has been reviewed, I agree with a documented findings and plan of care. Patient was seen and examined. Past Medical History Past Medical History: Hypertension Additional Past Medical History / Comment(s): restless Leg. Sinus History of Any Multi-Drug Resistant Organisms: None Reported Past Surgical History: Section Past Psychological History: No Psychological Hx Reported Smoking Status: Former smoker Past Alcohol Use History: None Reported Past Drug Use History: None Reported Medications and Allergies Home Medications Medication Instructions Recorded Confirmed Type Ergocalciferol [Vitamin D2] 50,000 unit PO SA 11/09/18 11/09/18 History Lisinopril-Hctz 20-12.5 mg 1 tab PO DAILY 11/09/18 11/09/18 History [Zestoretic 20-12.5] Montelukast [Singulair] 10 mg PO HS 11/09/18 11/09/18 History Odin-3/Dha/Epa/Fish Oil [Fish Oil 1 cap PO DAILY 11/09/18 11/09/18 History 500 mg Softgel] rOPINIRole HCL [Requip] 0.25 mg PO HS 11/09/18 11/09/18 History Docusate [Colace] 100 mg PO BID #20 capsule 11/10/18 Rx HYDROcodone/APAP 5-325MG [[place] 1 tab PO Q6HR PRN #10 tab 11/10/18 Rx 5-325] Allergies Allergy/AdvReac Type Severity Reaction Status Date / Time Iodinated Contrast- Oral and Allergy Rash/Hives Verified 11/09/18 17:12 IV Dye Physical Exam Vitals: Vital Signs Temp Pulse Resp BP Pulse Ox 11/12/18 06:50 100.9 F H 109 H 20 114/75 92 L 11/12/18 00:58 99.0 F 96 16 101/55 95 11/11/18 21:00 97.8 F 98 20 107/68 93 L 11/11/18 15:00 99.1 F 97 16 106/67 94 L Intake and Output 11/11/18 11/12/18 11/12/18 22:59 06:59 14:59 Intake Total 340 440 240 Output Total 400 900 Balance -60 -460 240 Intake: IV 100 Sodium Chloride 0.9% 1, 100 000 ml @ 100 mls/hr IV . Q10H [facility] Rx#:[id number] Intake, IV Titration 100 100 Amount Piperacillin-Tazobactam 3 100 100 .375 gm In Sodium Chloride 0.9% 100 ml @ 25 mls/hr IVPB Q8H [facility] Rx#: [id number] Oral 240 240 240 Output: Urine 400 900 Other: Voiding Method Toilet Toilet # Voids 1 1 Results 11/11/18 06:50 11/11/18 06:50 Current Medications Generic Name Dose Route Start Last Admin Trade Name Freq PRN Reason Stop Dose Admin Albuterol/Ipratropium 3 ml 11/10/18 23:58 11/12/18 08:57 Duoneb 0.5 Mg-3 Mg/3 Ml Soln INHALATION Not Given RT-TID [facility] Albuterol/Ipratropium 3 ml 11/10/18 23:58 Duoneb 0.5 Mg-3 Mg/3 Ml Soln INHALATION RT-TID PRN Shortness Of Breath Or Wheezing Lisinopril/HCTZ 1 each 11/11/18 09:00 11/12/18 09:48 Zestoretic 20-12.5 PO 1 each DAILY [facility] Administration Heparin Sodium (Porcine) 5,000 unit 11/10/18 08:00 11/12/18 09:48 Heparin SQ 5,000 unit Q8HR [facility] Administration Hydromorphone HCl 0.5 mg 11/10/18 23:38 Dilaudid IVP Q3HR PRN Pain Piperacillin Sod/Tazobactam 100 mls @ 25 mls/hr 11/10/18 06:00 11/12/18 06:14 Sod 3.375 gm/ Sodium Chloride IVPB 25 mls/hr Q8H [facility] Administration Sodium Chloride 1,000 mls @ 100 mls/hr 11/10/18 06:30 11/12/18 09:47 Saline 0.9% IV 100 mls/hr .Q10H [facility] Administration Ketorolac Tromethamine 30 mg 11/11/18 12:30 11/12/18 06:14 Toradol IVP 11/15/18 12:29 30 mg Q6HR [facility] Administration Lorazepam 0.5 mg 11/10/18 23:36 11/11/18 21:19 Ativan PO 0.5 mg Q6HR PRN Administration Anxiety Montelukast Sodium 10 mg 11/10/18 21:00 11/11/18 21:11 Singulair PO 10 mg HS [facility] Administration Morphine Sulfate 4 mg 11/09/18 20:59 11/11/18 21:19 Morphine Sulfate (Inj) IVP 4 mg Q4HR PRN Administration Pain Ondansetron HCl 4 mg 11/09/18 20:59 Zofran IVP Q6HR PRN Nausea And Vomiting Pantoprazole Sodium 40 mg 11/11/18 21:00 11/12/18 09:49 Protonix PO 40 mg BID [facility] Administration Ropinirole HCl 0.25 mg 11/10/18 21:00 11/11/18 21:11 Requip PO 0.25 mg HS [facility] Administration Intake and Output 11/11/18 11/12/18 11/12/18 22:59 06:59 14:59 Intake Total 340 440 240 Output Total 400 900 Balance -60 -460 240 Intake: IV 100 Sodium Chloride 0.9% 1, 100 000 ml @ 100 mls/hr IV . Q10H [facility] Rx#:[id number] Intake, IV Titration 100 100 Amount Piperacillin-Tazobactam 3 100 100 .375 gm In Sodium Chloride 0.9% 100 ml @ 25 mls/hr IVPB Q8H [facility] Rx#: [id number] Oral 240 240 240 Output: Urine 400 900 Other: Voiding Method Toilet Toilet # Voids 1 1 11/11/18 06:50 11/11/18 06:50
[2018-11-12 12:35] LABS: Basophils % (A) 0 %; Eosinophils # (A) 0.1 k/uL (0-0.7); Eosinophils % (A) 1 %; HCT 33.8 % (34.0-46.0); HGB 11.1 gm/dL (11.4-16.0); Lymphocytes # (A) 1.3 k/uL (1.0-4.8); Lymphocytes % (A) 10 %; MCH 30.2 pg (25.0-35.0); MCV 91.5 fL (80.0-100.0); Mean Platelet Volume 8.6; Monocytes # (A) 0.4 k/uL (0-1.0); Monocytes % (A) 3 %; Neutrophils # (A) 10.9 k/uL (1.3-7.7); Neutrophils % (A) 85 %; Platelet Count 270 k/uL (150-450); RDW 13.9 % (11.5-15.5); WBC 12.9 k/uL (3.8-10.6)
[2018-11-12 12:40] LABS: ALT 49 U/L (9-52); AST 24 U/L (14-36); African American GFR (CKD) >90 (>60 ml/min/1.73 sqM); Alkaline Phosphatase 95 U/L (38-126); Anion Gap 10 mmol/L; Blood Urea Nitrogen 12 mg/dL (7-17); Calcium 8.6 mg/dL (8.4-10.2); Carbon Dioxide 25 mmol/L (22-30); Chloride 103 mmol/L (98-107); Glucose 152 mg/dL (74-99); Potassium 3.2 mmol/L (3.5-5.1); Sodium 138 mmol/L (137-145); Total Bilirubin 1.2 mg/dL (0.2-1.3); Total Protein 5.6 g/dL (6.3-8.2)
--- NOTE | 2018-11-12 12:41 | P.PN ---
Subjective Progress Note Date: 11/12/18 CHIEF COMPLAINT: Acute cholecystitis HISTORY OF PRESENT ILLNESS: The patient is a 63-year-old female postop day 2 status post cholecystectomy, 11/10/2018. She feels much better today. In fact, she is enjoying a meatloaf lunch. Her is at bedside who reports orange to dark urine. Her pain is well controlled. She has been seen by cardiology who now is seeking additional work-up for elevated D-dimer. ROS: No reports of nausea and vomiting. No bowel movements. Fever 100.9. PHYSICAL EXAM: VITAL SIGNS: Reviewed CONSTITUTIONAL: Well developed and in no acute distress. EYES: Conjuctivae without sclera icterus. Extraocular movements grossly intact. HEAD, EARS, NOSE, THROAT: Moist buccal mucosa. Head is atraumatic, normocephalic. Hears conversational speech. No nasal drainage. NECK: Supple. No thyroidomegaly. RESPIRATORY: Non-labored respirations and equal bilateral excursions. CARDIOVASCULAR: Palpable 2+ radial pulses. Regular rate. Regular rhythm. ABDOMEN: Incisions clean dry and intact. No peritonitis. MUSCULOSKELETAL: No gross deformity of the lower extremities noted. No clubbing. No cyanosis. SKIN: Good skin turgor. Well perfused. NEUROLOGIC: Cranial nerves I through XII grossly intact. No focal or lateralizing signs. PSYCH: Appropriate affect. Alert and oriented to person, place and time. CLINCAL LABS: White blood cell count elevated at 13,000. LFTs mildly elevated. Labs pending. ASSESSMENT: 1. Acute cholecystitis PLAN: 1. Pending CBC including comprehensive metabolic panel with new fevers 2. Education for incentive spirometer 3. Clinically, she looks much better than yesterday. Discharge today held for current cardiac work-up 4. Fluid bolus for oliguria and dehydration Objective - Vital Signs Vital signs: Vital Signs Temp 100.9 F H 11/12/18 06:50 Pulse 109 H 11/12/18 06:50 Resp 20 11/12/18 06:50 BP 114/75 11/12/18 06:50 Pulse Ox 92 L 11/12/18 06:50 Intake & Output 11/11/18 11/12/18 11/12/18 18:59 06:59 18:59 Intake Total 480 780 240 Output Total 400 900 Balance 80 -120 240 Intake: IV 100 Sodium Chloride 0.9% 1, 100 000 ml @ 100 mls/hr IV . Q10H [facility] Rx#:[id number] Intake, IV Titration 200 Amount Piperacillin-Tazobactam 3 200 .375 gm In Sodium Chloride 0.9% 100 ml @ 25 mls/hr IVPB Q8H [facility] Rx#: [id number] Oral 480 480 240 Output: Urine 400 900 Other: Voiding Method Toilet # Voids 2 1 - Labs CBC & Chem 7: 11/12/18 09:19 11/11/18 06:50 Labs: Abnormal Lab Results - Last 24 Hours (Table) 11/12/18 Range/Units 09:19 D-Dimer 4.38 H (<0.60) mg/L FEU Assessment and Plan (1) Abdominal pain Current Visit: Yes Status: Acute Code(s): R10.9 - UNSPECIFIED ABDOMINAL PAIN SNOMED Code(s): 91500344 (2) Acute cholecystitis Current Visit: Yes Status: Acute Code(s): K81.0 - ACUTE CHOLECYSTITIS SNOMED Code(s): 94011627
[2018-11-12] MEDS ORDERED: diphenhydrAMINE 50 MG/ML 1 ML VIAL IVP ONE (13:03)
[2018-11-12] MEDS ORDERED: methylPREDNISolone SOD SUCCI 125 MG/2 ML VIAL IV ONE (13:03)
[2018-11-12] MEDS ORDERED: FAMOTIDINE 20 MG/2 ML VIAL IV ONE (13:03)
[2018-11-12] MEDS ORDERED: Potassium Replacement Protocol 1 EACH MISC MISCELLANE PRN ×2 (18:49→19:02)
--- NOTE | 2018-11-12 19:28 | CT ---
EXAMINATION TYPE: CT angio chest DATE OF EXAM: 11/12/2018 COMPARISON: CT abdomen pelvis study 3 days earlier. HISTORY: elevated d-dimer CT DLP: 352.1 mGycm. Automated Exposure Control for Dose Reduction was Utilized. CONTRAST: CTA scan of the thorax is performed with IV Contrast, patient injected with 80cc mL of Isovue 370, pu lmonary embolism protocol. MIP Images are created on CT scanner and reviewed. FINDINGS: LUNGS: Suboptimal as is degraded by respiratory motion artifact. There is tiny left pleural effusion. There is bilateral lower lung atelectasis and/or consolidation. No pneumothorax is seen bilaterally. MEDIASTINUM: There is satisfactory enhancement of the pulmonary artery and its branches, there is no CT evidence for pulmonary embolism. There are no greater than 1 cm hilar or mediastinal lymph nodes. No cardiomegaly or pericardial effusion is seen. Greater than 1 cm right thyroid nodule axial imag e 4. Follow-up advised. OTHER: [id number] multilevel spurring in the spine. New heterogeneous fluid and fat stranding in the visualized upper to mid abdomen perhaps product of i nterval surgery from CT abdomen study 3 days earlier. There are now several floating rim calcified ga llstones in the visualized upper abdominal peritoneal cavity. There is ill-defined fluid at level of the gallbladder fossa on current study nonspecific. IMPRESSION: 1. No CT evidence for acute pulmonary embolism. 2. New tiny left pleural effusion with bibasilar atelectasis and/or consolidation. 3. Confirmation of interval laparoscopic cholecystectomy by patient's nurse via telephone. Nonspecifi c ill-defined fluid and fat stranding in the upper to mid abdomen with more prominent ill-defined flu id at level of gallbladder fossa. Peritonitis cannot be excluded. Floating intraperitoneal rim calcif ied gallstones are now noted. 4. Greater than 1 cm right thyroid nodule. Nonurgent thyroid ultrasound follow-up is advised. Case discussed with patient's nurse via telephone at time of dictation.
[2018-11-12] MEDS: POTASSIUM CHLORIDE ER 20 MEQ TAB.ER PO SCH ×2 (19:35→21:25)
--- NOTE | 2018-11-12 21:04 | PN ---
PROGRESS NOTE DATE OF SERVICE: 11/12/2018 This 63-year-old woman who was admitted after laparoscopic cholecystectomy, had chest pain and abdominal pain. Cardiology following the patient closely as well as Surgery. No chest pain or palpitation at this time. PHYSICAL EXAM: Alert and oriented x3. Pulse is 102, blood pressure is 140/70, respiration 18, temp is 98.8 and T-max 100.9, pulse ox 93% on room air. HEENT: Conjunctivae normal. Oral mucosa moist. NECK: No jugular venous distention. No lymph node enlargement. CARDIOVASCULAR: S1, S2. RESPIRATORY: Diminished breath sounds at the bases. Scattered rhonchi. ABDOMEN: Soft, status post surgery. LEGS: No swelling. NERVOUS SYSTEM: No focal deficits. LABS: WBC 12.2, hemoglobin 11.1, and D-dimer is 4.38. ASSESSMENT: 1. Chest pain, abdominal pain postoperative for evaluation. 2. Rule out coronary artery disease. 3. Status post laparoscopic cholecystectomy for cholelithiasis and cholecystitis. 4. Elevated D-dimer. 5. Elevated AST, ALT. 6. Increased WBC present on admission. 7. Elevated random blood sugar. 8. Elevated calcium, present on admission, improved. 9. Hypertension. 10.History of restless legs syndrome. 11.History of section. 12.Remote history of nicotine dependence. RECOMMENDATIONS AND DISCUSSION: Recommend to continue current medications, continue to monitor, symptomatic treatment. Otherwise, closely follow with Surgery and Cardiology. Cardiology has recommended CT angio chest and as well as 2D echo. We will continue to monitor. Dr. Cooper will follow. MMODL / IJN: [id number] /
[2018-11-12] MEDS: MONTELUKAST 10 MG TAB PO SCH (21:25)
[2018-11-13] MEDS: HEPARIN SODIUM,PORCINE 5,000 UNIT/ML 1 ML VIAL SQ SCH ×3 (00:40→17:13)
[2018-11-13] MEDS: KETOROLAC 30 MG/ML 1 ML VIAL IVP SCH ×4 (00:40→17:13)
[2018-11-13] MEDS: PIPERACILLIN-TAZOBACTAM 3.375 GM in SODIUM CHLORIDE 0.9% 100 ML IVPB SCH (06:03)
[2018-11-13] MEDS: SODIUM CHLORIDE 0.9% 1,000 ML IV SCH ×2 (06:04→17:15)
[2018-11-13] MEDS: IPRATROPIUM-ALBUTEROL 3 ML NEB INHALATION SCH ×3 (07:53→21:09)
[2018-11-13] MEDS ORDERED: BISACODYL 10 MG SUPP RECTAL STA (08:56)
--- NOTE | 2018-11-13 09:25 | P.PN ---
Subjective Progress Note Date: 11/13/18 Christy Li is a 63-year-old female who underwent laparoscopic cholecystectomy. She experienced postoperative chest pain and abdominal pain. Cardiology is following, and planning for 2-D echo today. Currently, patient denies any further chest pain but does feel discomfort with inspiration. She is passing gas but has not yet had a bowel movement. She complains of leg swelling. Objective - Vital Signs Vital signs: Vital Signs Temp 97.6 F 11/13/18 07:24 Pulse 84 11/13/18 08:04 Resp 16 11/13/18 07:24 BP 128/77 11/13/18 07:24 Pulse Ox 93 L 11/13/18 07:24 Intake & Output 11/12/18 11/13/18 11/13/18 18:59 06:59 18:59 Intake Total 2370 920 Balance 2370 920 Intake: IV 300 Sodium Chloride 0.9% 1, 300 000 ml @ 100 mls/hr IV . Q10H [facility] Rx#:[id number] Intake, IV Titration 1100 200 Amount Piperacillin-Tazobactam 3 200 .375 gm In Sodium Chloride 0.9% 100 ml @ 25 mls/hr IVPB Q8H [facility] Rx#: [id number] Sodium Chloride 0.9% 1, 100 000 ml @ 100 mls/hr IV . Q10H [facility] Rx#:[id number] Sodium Chloride 0.9% 1, 1000 000 ml @ 999 mls/hr IV . Q1H1M [facility] Rx#:[id number] Oral 970 720 Other: Voiding Method Toilet # Voids 2 1 - Exam General. Well-developed well-nourished note apparent distress. Vitals reviewed. HEENT. Mucous membranes moist CV. Regular rate and rhythm no murmurs. Peripheral pulses 2+ Lungs. Normal inspiratory effort, crackles at bases. no wheezing or rhonchi Abdomen. Soft generalized tenderness throughout. Laparoscopic incisions clean, no erythema Extremity. 1+ edema bilateral lower extremities - Labs CBC & Chem 7: 11/12/18 09:11/12/18 22:58 Labs: Abnormal Lab Results - Last 24 Hours (Table) 11/12/18 11/12/18 11/12/18 Range/Units : 09: 09: WBC 12.9 H (3.8-10.6) k/uL RBC 3.70 L (3.80-5.40) m/uL Hgb 11.1 L (11.4-16.0) gm/dL Hct 33.8 L (34.0-46.0) % Neutrophils # 10.9 H (1.3-7.7) k/uL D-Dimer 4.38 H (<0.60) mg/L FEU Potassium 3.2 L (3.5-5.1) mmol/L Glucose 152 H (74-99) mg/dL Total Protein 5.6 L (6.3-8.2) g/dL Albumin 3.0 L (3.5-5.0) g/dL Assessment and Plan (1) Chest pain Current Visit: Yes Status: Acute Code(s): R07.9 - CHEST PAIN, UNSPECIFIED SNOMED Code(s): 43253367 (2) Elevated d-dimer Current Visit: Yes Status: Acute Code(s): R79.89 - OTHER SPECIFIED ABNORMAL FINDINGS OF BLOOD CHEMISTRY SNOMED Code(s): 209671155 (3) Abdominal pain Current Visit: Yes Status: Acute Code(s): R10.9 - UNSPECIFIED ABDOMINAL PAIN SNOMED Code(s): 60796816 (4) Acute cholecystitis Current Visit: Yes Status: Acute Code(s): K81.0 - ACUTE CHOLECYSTITIS SNOMED Code(s): 38347308 Plan: 1. Chest pain/abdominal pain. Suspect secondary to recent surgery. ACS ruled out. Cardiology following, CTA chest showing fat stranding and fluid around the gallbladder fossa. Plan for echocardiogram today. Switch IV antibiotics to Levaquin, anticipate discharge tomorrow and patient will complete course of antibiotics
[2018-11-13] MEDS: LISINOPRIL-HCTZ 20-12.5 MG 1 EACH TAB PO SCH (10:13)
[2018-11-13] MEDS: PANTOPRAZOLE 40 MG TABLET PO SCH ×2 (10:13→20:12)
[2018-11-13] MEDS: HYDROmorphone 0.5 MG/0.5 ML SYRINGE IVP PRN (10:22)
--- NOTE | 2018-11-13 11:35 | P.PN ---
Subjective This is a pleasant 63-year-old female past medical history significant for hypertension and chronic nicotine dependence. She states she quit smoking 4 weeks ago. She presented to the hospital with symptoms of abdominal discomfort and was diagnosed with acute cholecystitis. She underwent laparoscopic cholecystectomy Tuesday with Dr. Wsie. We were asked to see for chest pain. Pain is respirophasic and associated with deep inspiration. She is seen and examined sitting up in the chair in no acute distress. CTA chest performed yes terday was negative for PE, tiny left pleural effusion, fluid and fat stranding in the upper to mid abdomen, peritonitis cannot be excluded and thyroid nodule noted. She denies ongoing chest discomfort. She does however, have mild lower extremity edema. She also denies shortness of breath, dizziness or palpitations. Blood pressure 128/77 heart rate 84 afebrile and maintaining oxygen saturation on room air. GENERAL: This is a 63-year-old female in no apparent distress at the time of my examination. HEENT: Head is atraumatic, normocephalic. Pupils are equal, round. Sclerae anicteric. Conjunctivae are clear. Mucous membranes of the mouth are moist. Neck is supple. There is no jugular venous distention. No carotid bruit is heard. LUNGS: Clear to auscultation no wheezes, rales or rhonchi. No chest wall tenderness is noted on palpation or with deep breathing. HEART: Regular rate and rhythm without murmurs, rubs or gallops. S1 and S2 heard. EXTREMITIES: Trace bilateral lower extremity peripheral edema and no calf tenderness noted. ASSESSMENT Pleuritic chest pain, atypical for angina. Status post cholecystectomy Hypertension PLAN Echo has been obtained and will be reviewed. Stable from a cardiac perspective. Ongoing medical management. Nurse Practitioner note has been reviewed, I agree with a documented findings and plan of care. Patient was seen and examined. Objective - Vital Signs Vital signs: Vital Signs Temp 97.6 F 11/13/18 07:24 Pulse 84 11/13/18 08:04 Resp 16 11/13/18 07:24 BP 128/77 11/13/18 07:24 Pulse Ox 93 L 11/13/18 07:24 Intake & Output 11/12/18 11/13/18 11/13/18 18:59 06:59 18:59 Intake Total 2370 920 Balance 2370 920 Intake: IV 300 Sodium Chloride 0.9% 1, 300 000 ml @ 100 mls/hr IV . Q10H [facility] Rx#:[id number] Intake, IV Titration 1100 200 Amount Piperacillin-Tazobactam 3 200 .375 gm In Sodium Chloride 0.9% 100 ml @ 25 mls/hr IVPB Q8H [facility] Rx#: [id number] Sodium Chloride 0.9% 1, 100 000 ml @ 100 mls/hr IV . Q10H [facility] Rx#:[id number] Sodium Chloride 0.9% 1, 1000 000 ml @ 999 mls/hr IV . Q1H1M [facility] Rx#:[id number] Oral 970 720 Other: Voiding Method Toilet # Voids 2 1 - Labs CBC & Chem 7: 11/12/18 09:19 11/12/18 22:58 Labs: Abnormal Lab Results - Last 24 Hours (Table) 11/12/18 11/12/18 Range/Units :19 09:19 WBC 12.9 H (3.8-10.6) k/uL RBC 3.70 L (3.80-5.40) m/uL Hgb 11.1 L (11.4-16.0) gm/dL Hct 33.8 L (34.0-46.0) % Neutrophils # 10.9 H (1.3-7.7) k/uL Potassium 3.2 L (3.5-5.1) mmol/L Glucose 152 H (74-99) mg/dL Total Protein 5.6 L (6.3-8.2) g/dL Albumin 3.0 L (3.5-5.0) g/dL
--- NOTE | 2018-11-13 12:00 | ECHOF ---
Referral Reason:cp, sob MEASUREMENTS -------- HEIGHT: 162.6 cm WEIGHT: 71.7 kg BP: RVIDd: 2.4 cm (< 3.3) IVSd: 1.0 cm (0.6 - 1.1) LVIDd: 4.1 cm (3.9 - 5.3) LVPWd: 0.9 cm (0.6 - 1.1) IVSs: 1.4 cm LVIDs: 2.7 cm LVPWs: 1.2 cm LA Diam: 2.3 cm (2.7 - 3.8) Ao Diam: 3.2 cm (2.0 - 3.7) AV Cusp: 2.2 cm (1.5 - 2.6) LA Diam: 3.4 cm (2.7 - 3.8) MV EXCURSION: 19.523 mm (> 18.000) MV EF SLOPE: 118 mm/s (70 - 150) EPSS: 0.3 cm MV E Rishabh: 0.92 m/s MV DecT: 190 ms MV A Rishabh: 1.20 m/s MV E/A Ratio: 0.77 RAP: 5.00 mmHg RVSP: 13.09 mmHg FINDINGS -------- Sinus rhythm. This was a technically adequate study. The left ventricular size is normal. There is mild concentric left ventricular hypertrophy. Overa ll left ventricular systolic function is normal with, an EF between 55 - 60 %. The diastolic fillin g pattern is normal for the age of the patient 6.68. The right ventricle is normal in size. The left atrial size is normal. The right atrial size is normal. The aortic valve is trileaflet, and appears structurally normal. No aortic stenosis or regurgitation. The mitral valve is normal. Mild mitral regurgitation is present. Mild tricuspid regurgitation present. There is no evidence of pulmonary hypertension. The right v entricular systolic pressure, as measured by Doppler, is 13.09mmHg. The pulmonic valve was not well visualized. There is no pulmonic regurgitation present. The aortic root size is normal. There is no pericardial effusion. No subcostals due to surgery. CONCLUSIONS -------- 1. Sinus rhythm. 2. This was a technically adequate study. 3. The left ventricular size is normal. 4. There is mild concentric left ventricular hypertrophy. 5. Overall left ventricular systolic function is normal with, an EF between 55 - 60 %. 6. The diastolic filling pattern is normal for the age of the patient 6.68 7. The left atrial size is normal. 8. The aortic valve is trileaflet, and appears structurally normal. No aortic stenosis or regurgitati on. 9. Mild mitral regurgitation is present. 10. Mild tricuspid regurgitation present. 11. There is no evidence of pulmonary hypertension. 12. The pulmonic valve was not well visualized. 13. There is no pulmonic regurgitation present. 14. The aortic root size is normal. 15. There is no pericardial effusion. 16. No subcostals due to surgery. LIMOUSINE DRIVER: Bree Houston RDCS
--- NOTE | 2018-11-13 12:01 | P.PN ---
Subjective Progress Note Date: 11/13/18 CHIEF COMPLAINT: Cholecystitis, cholelithiasis HISTORY OF PRESENT ILLNESS: Patient is status post laparoscopic cholecystectomy performed on 11/10/18. Patient examined this morning. She is sitting up in the chair. Abdominal pain is tolerable. Denies nausea or vomiting. Tolerating diet. Passing flatus. Denies BM. Has been ambulating in the halls. Cardiology follow ing for chest pain. PHYSICAL EXAM: VITAL SIGNS: Reviewed. GENERAL: Well-developed in no acute distress. HEENT: No sclera icterus. Extraocular movements grossly intact. Moist buccal mucosa. Head is atraumatic, normocephalic. ABDOMEN: Soft. Mildly distended. Appropriate surgical tenderness. Surgical sites clean dry and intact without drainage or signs of infection NEUROLOGIC: Alert and oriented. Cranial nerves II through XII grossly intact. ASSESSMENT: 1. Cholecystitis and cholelithiasis, status postoperative laparoscopic cholecystectomy PLAN: 1. Continue diet as tolerated 2. Dulcolax x 1 3. Increase ambulation 4. Cardiology following. Echo ordered. Await results 5. Case discussed with medicine who recommends patient stay another 24 hours. Agreeable with plans. Will DC home tomorrow if patient remains stable and cleared from cardiology standpoint Nurse practitioner note has been reviewed by physician. Signing provider agrees with the documented findings, assessment, and plan of care. Objective - Vital Signs Vital signs: Vital Signs Temp 97.6 F 11/13/18 07:24 Pulse 84 11/13/18 08:04 Resp 16 11/13/18 07:24 BP 128/77 11/13/18 07:24 Pulse Ox 93 L 11/13/18 07:24 Intake & Output 11/12/18 11/13/18 11/13/18 18:59 06:59 18:59 Intake Total 2370 920 Balance 2370 920 Intake: IV 300 Sodium Chloride 0.9% 1, 300 000 ml @ 100 mls/hr IV . Q10H [facility] Rx#:[id number] Intake, IV Titration 1100 200 Amount Piperacillin-Tazobactam 3 200 .375 gm In Sodium Chloride 0.9% 100 ml @ 25 mls/hr IVPB Q8H [facility] Rx#: [id number] Sodium Chloride 0.9% 1, 100 000 ml @ 100 mls/hr IV . Q10H [facility] Rx#:[id number] Sodium Chloride 0.9% 1, 1000 000 ml @ 999 mls/hr IV . Q1H1M [facility] Rx#:[id number] Oral 970 720 Other: Voiding Method Toilet # Voids 2 1 - Labs CBC & Chem 7: 11/12/18 09:19 11/12/18 22:58 Labs: Abnormal Lab Results - Last 24 Hours (Table) 11/12/18 11/12/18 Range/Units 09: 09:19 WBC 12.9 H (3.8-10.6) k/uL RBC 3.70 L (3.80-5.40) m/uL Hgb 11.1 L (11.4-16.0) gm/dL Hct 33.8 L (34.0-46.0) % Neutrophils # 10.9 H (1.3-7.7) k/uL Potassium 3.2 L (3.5-5.1) mmol/L Glucose 152 H (74-99) mg/dL Total Protein 5.6 L (6.3-8.2) g/dL Albumin 3.0 L (3.5-5.0) g/dL
[2018-11-13] MEDS: LEVOFLOXACIN 750 MG TAB PO SCH (13:06)
[2018-11-13] MEDS: MONTELUKAST 10 MG TAB PO SCH (20:12)
[2018-11-14] MEDS: HEPARIN SODIUM,PORCINE 5,000 UNIT/ML 1 ML VIAL SQ SCH ×2 (00:06→08:03)
[2018-11-14] MEDS: KETOROLAC 30 MG/ML 1 ML VIAL IVP SCH ×3 (00:07→12:23)
[2018-11-14] MEDS: HYDROmorphone 0.5 MG/0.5 ML SYRINGE IVP PRN ×2 (02:27→12:23)
[2018-11-14 07:07] LABS: African American GFR (CKD) >90 (>60 ml/min/1.73 sqM); Anion Gap 9 mmol/L; Blood Urea Nitrogen 21 mg/dL (7-17); Calcium 8.8 mg/dL (8.4-10.2); Carbon Dioxide 26 mmol/L (22-30); Chloride 108 mmol/L (98-107); Glucose 121 mg/dL (74-99); Potassium 3.4 mmol/L (3.5-5.1); Sodium 143 mmol/L (137-145)
[2018-11-14 07:09] LABS: Basophils % (A) 0 %; Eosinophils # (A) 0.3 k/uL (0-0.7); Eosinophils % (A) 3 %; HCT 30.8 % (34.0-46.0); HGB 10.4 gm/dL (11.4-16.0); Lymphocytes # (A) 1.8 k/uL (1.0-4.8); Lymphocytes % (A) 19 %; MCH 30.3 pg (25.0-35.0); MCHC 33.7 g/dL (31.0-37.0); MCV 89.9 fL (80.0-100.0); Mean Platelet Volume 6.9; Monocytes # (A) 0.5 k/uL (0-1.0); Monocytes % (A) 5 %; Neutrophils # (A) 6.7 k/uL (1.3-7.7); Neutrophils % (A) 71 %; Platelet Count 318 k/uL (150-450); RBC 3.43 m/uL (3.80-5.40); RDW 13.1 % (11.5-15.5); WBC 9.5 k/uL (3.8-10.6)
[2018-11-14] MEDS ORDERED: POTASSIUM CHLORIDE ER 20 MEQ TAB.ER PO STA (07:48)
[2018-11-14 08:01] VITALS: BP 146/76; RESP 17; TEMP 98.3
[2018-11-14] MEDS: LISINOPRIL-HCTZ 20-12.5 MG 1 EACH TAB PO SCH (08:02)
[2018-11-14] MEDS: PANTOPRAZOLE 40 MG TABLET PO SCH (08:02)
[2018-11-14] MEDS: LEVOFLOXACIN 750 MG TAB PO SCH (08:02)
[2018-11-14] MEDS: IPRATROPIUM-ALBUTEROL 3 ML NEB INHALATION SCH (08:52)
[2018-11-14 08:55] VITALS: PULSE 88
[2018-11-14] MEDS ORDERED: FUROSEMIDE 10 MG/ML 4 ML VIAL IV STA (09:05)
[2018-11-14] MEDS ORDERED: LACTULOSE 20 GM/30 ML CUP PO ONE ×2 (09:07→09:46)
--- NOTE | 2018-11-14 15:01 | P.DS ---
Providers Date of admission: 11/11/18 14:35 Expected date of discharge: 11/14/18 Attending physician: Jagdeep Wilson Consults: 11/10/18 09:40 Consult Physician Routine Consulting Provider: Robbie Cooper Consult Reason/Comments: medical management Do you want consulting provider notified?: Yes 11/11/18 12:04 Consult Physician Urgent Consulting Provider: Evelio Ervin Consult Reason/Comments: chest pain Do you want consulting provider notified?: Yes Primary care physician: Tamiko Vincent Hospital Course: 63 year old female who presented to the ER with abdominal pain. Patient underwent laparoscopic cholecystectomy performed on 11/10/18. Patient doing well postoperatively. She did develop an episode of chest pain postoperatively. Cardiology was consulted and evaluated patient. Echocardiogram revealed normal ejection fraction. She was cleared for discharge from a cardiac standpoint. She is tolerating diet without nausea or vomiting. Vital signs have been stable. She is stable for discharge home today. See EMR for further hospital course details. Discharge Diagnosis: 1. Cholecystitis and cholelithiasis, status post laparoscopic cholecystectomy Nurse practitioner note has been reviewed by physician. Signing provider agrees with the documented findings, assessment, and plan of care. Patient Condition at Discharge: Stable Plan - Discharge Summary Discharge Rx Participant: Yes New Discharge Prescriptions: New Docusate [Colace] 100 mg PO BID #20 capsule HYDROcodone/APAP 5-325MG [Tennga 5-325] 1 tab PO Q6HR PRN #10 tab PRN Reason: Pain No Action rOPINIRole HCL [Requip] 0.25 mg PO HS Montelukast [Singulair] 10 mg PO HS Lisinopril-Hctz 20-12.5 mg [Zestoretic 20-12.5] 1 tab PO DAILY Ergocalciferol [Vitamin D2] 50,000 unit PO SA Bussey-3/Dha/Epa/Fish Oil [Fish Oil 500 mg Softgel] 1 cap PO DAILY Discharge Medication List Ergocalciferol [Vitamin D2] 50,000 unit PO SA 11/09/18 [History] Lisinopril-Hctz 20-12.5 mg [Zestoretic 20-12.5] 1 tab PO DAILY 11/09/18 [History] Montelukast [Singulair] 10 mg PO HS 11/09/18 [History] Bussey-3/Dha/Epa/Fish Oil [Fish Oil 500 mg Softgel] 1 cap PO DAILY 11/09/18 [History] rOPINIRole HCL [Requip] 0.25 mg PO HS 11/09/18 [History] Docusate [Colace] 100 mg PO BID #20 capsule 11/10/18 [Rx] HYDROcodone/APAP 5-325MG [Tennga 5-325] 1 tab PO Q6HR PRN #10 tab 11/10/18 [Rx] Follow up Appointment(s)/Referral(s): Tamiko Vincent DO [Primary Care Provider] - 11/21/18 9:00 am Jagdeep Wilson MD [STAFF PHYSICIAN] - 11/21/18 4:20 pm Patient Instructions/Handouts: *Surgery [facility] - Laparoscopic Cholecystectomy Discharge Instructions Activity/Diet/Wound Care/Special Instructions: No driving while taking Tennga No lifting over 10 pounds You may shower. No soaking or tub baths Very light activity until you are reevaluated at your follow up appointment with your surgeon Discharge Disposition: HOME SELF-CARE
--- NOTE | 2018-11-14 17:14 | P.PN ---
Subjective Progress Note Date: 11/14/18 Christy Li is a 63-year-old female who underwent laparoscopic cholecystectomy. She experienced postoperative chest pain and abdominal pain. Cardiology is following, and planning for 2-D echo today. Currently, patient denies any further chest pain but does feel discomfort with inspiration. She is passing gas but has not yet had a bowel movement. She complains of leg swelling. 11/14/2018 evaluated by cardiology, recommendations noted and appreciated. Echo revealed normal EF. Mild leg edema this morning, patient to receive additional Lasix 40 IV push 1 dose. Incentive spirometer up to 500. Pain controlled. Positive bowel movement. Denies chest pain, palpitations or shortness of breath. Denies lightheadedness dizziness or focal deficits. Medically cleared for discharge home this afternoon. Objective - Vital Signs Vital signs: Vital Signs Temp 98.3 F 11/14/18 07:00 Pulse 88 11/14/18 09:02 Resp 17 11/14/18 07:45 BP 146/76 11/14/18 07:00 Pulse Ox 93 L 11/14/18 07:00 Intake & Output 11/13/18 11/14/18 11/14/18 18:59 06:59 18:59 Intake Total 458 480 118 Balance 458 480 118 Intake: Intake, IV Titration 30 Amount Sodium Chloride 0.9% 1, 30 000 ml @ 100 mls/hr IV . Q10H [facility] Rx#:[id number] Oral 458 450 118 Other: Voiding Method Toilet Toilet Toilet # Voids 2 1 - Exam General. Well-developed well-nourished note apparent distress. Vitals reviewed. HEENT. Mucous membranes moist CV. Regular rate and rhythm no murmurs. Peripheral pulses 2+ Lungs. Normal inspiratory effort, crackles at bases. no wheezing or rhonchi Abdomen. Soft generalized tenderness throughout. Laparoscopic incisions clean, no erythema Extremity. 1+ edema bilateral lower extremities - Labs CBC & Chem 7: 11/14/18 06:21 11/14/18 06:21 Labs: Abnormal Lab Results - Last 24 Hours (Table) 11/14/18 11/14/18 Range/Units 06:21 06:21 RBC 3.43 L (3.80-5.40) m/uL Hgb 10.4 L (11.4-16.0) gm/dL Hct 30.8 L (34.0-46.0) % Potassium 3.4 L (3.5-5.1) mmol/L Chloride 108 H (98-107) mmol/L BUN 21 H (7-17) mg/dL Glucose 121 H (74-99) mg/dL Assessment and Plan Assessment: (1) Chest pain Current Visit: Yes Status: Acute Code(s): R07.9 - CHEST PAIN, UNSPECIFIED SNOMED Code(s): 72857926 (2) Elevated d-dimer Current Visit: Yes Status: Acute Code(s): R79.89 - OTHER SPECIFIED ABNORMAL FINDINGS OF BLOOD CHEMISTRY SNOMED Code(s): 007415514 (3) Abdominal pain Current Visit: Yes Status: Acute Code(s): R10.9 - UNSPECIFIED ABDOMINAL PAIN SNOMED Code(s): 64484518 (4) Acute cholecystitis status post laparoscopic cholecystectomy Current Visit: Yes Status: Acute Code(s): K81.0 - ACUTE CHOLECYSTITIS [facility] Code(s): 28458169 Plan: 1. Chest pain/abdominal pain. Suspect secondary to recent surgery. ACS ruled out. Cardiology following, CTA chest showing fat stranding and fluid around the gallbladder fossa. Plan for echocardiogram today. Switch IV antibiotics to Levaquin, anticipate discharge tomorrow and patient will complete course of antibiotics 11/14/2018. Lasix 40 IV 1 with potassium 20 mg by mouth. Aggressive pulmonary toileting with incentive spirometer reinforced. Discharge planning in progress later this afternoon as per surgery. Follow with PCP in 1 week. Further recommendations to follow. The impression and plan of care has been dictated as directed. : I performed a history and examination of this patient, discussed the same with the dictator. I agree with the dictator's note ,documented as a scribe. Any additional findings or plans will be noted.
== END 2018-11-14 14:52 | disposition home or self-care (01) | DRG 419 ==
LOC: EC 15:50 → 4SSUR 20:59 → OBSVTOIN 11-11 14:35
PROVIDERS: ADMIT Surgery; ATTEND Surgery
PROC: 0FT44ZZ Resection of Gallbladder, Percutaneous Endoscopic Approach (ICD-10-PCS; principal; 2018-11-10 08:45)
DX: K80.12 Calculus of gallbladder with acute and chronic cholecystitis without obstruction (principal); K59.00 Constipation, unspecified; R07.89 Other chest pain; I10 Essential (primary) hypertension; G25.81 Restless legs syndrome; K57.90 Diverticulosis of intestine, part unspecified, without perforation or abscess without bleeding; R79.89 Other specified abnormal findings of blood chemistry; R74.0 Nonspecific elevation of levels of transaminase and lactic acid dehydrogenase [LDH]; Z98.891 History of uterine scar from previous surgery; Z79.899 Other long term (current) drug therapy; Z87.891 Personal history of nicotine dependence; Z91.041 Radiographic dye allergy status
CPT/HCPCS: 36415; 71045; 71275; 74177; 76705; 80048; 80053; 81001; 82150; 82550; 83605; 83690; 83735; 84132; 84484; 85025; 85379; 85610; 85730; 88304; 93005; 93306; 94640; 96361; 96374; 96375; 99285

== ENCOUNTER → 2019-04-13 | Outpatient (CLI) | payer OTHER | END | disposition home or self-care (01) | LOC: RADCTMAIN 11:41 | PROVIDERS: ATTEND Family Medicine | DX: Z53.9 Procedure and treatment not carried out, unspecified reason (principal) ==

== ENCOUNTER → 2019-05-04 | Outpatient (CLI) | payer OTHER ==
--- NOTE | 2019-05-07 08:03 | MM ---
Reason for exam: screening (asymptomatic). Last mammogram was performed 1 year and 1 month ago. History: Patient is postmenopausal. Family history of breast cancer in sister at age 40. Physical Findings: A clinical breast exam by your physician is recommended on an annual basis and results should be correlated with mammographic findings. MG 3D Screening Mammo W/Cad Bilateral CC and MLO view(s) were taken. Prior study comparison: April 07, 2018, bilateral MG screening mammo w CAD. April 06, 2017, bilateral MG screening mammo w CAD. There are scattered fibroglandular densities. Benign appearing bilateral calcifications. No suspicious abnormality. No significant changes when compared with prior studies. ASSESSMENT: Benign, BI-RAD 2 RECOMMENDATION: Routine screening mammogram of both breasts in 1 year.
== END | disposition home or self-care (01) ==
LOC: RADMAMWWP 11:03
PROVIDERS: ATTEND Family Medicine
DX: Z12.31 Encounter for screening mammogram for malignant neoplasm of breast (principal)
CPT/HCPCS: 77063; 77067

== ENCOUNTER → 2019-06-01 | Outpatient (CLI) | payer OTHER ==
[2019-06-01 09:30] LABS: Basophils % (A) 1 %; Eosinophils # (A) 0.1 k/uL (0-0.7); Eosinophils % (A) 2 %; HCT 43.5 % (34.0-46.0); HGB 14.9 gm/dL (11.4-16.0); Lymphocytes % (A) 30 %; MCH 29.8 pg (25.0-35.0); MCHC 34.3 g/dL (31.0-37.0); MCV 86.9 fL (80.0-100.0); Mean Platelet Volume 7.3; Monocytes # (A) 0.3 k/uL (0-1.0); Monocytes % (A) 4 %; Neutrophils # (A) 4.2 k/uL (1.3-7.7); Neutrophils % (A) 62 %; Platelet Count 317 k/uL (150-450); RBC 5.01 m/uL (3.80-5.40); RDW 13.3 % (11.5-15.5); WBC 6.7 k/uL (3.8-10.6)
== END | disposition home or self-care (01) ==
LOC: LABPAT 08:30
PROVIDERS: ATTEND Surgery
DX: Z01.818 Encounter for other preprocedural examination (principal); K43.0 Incisional hernia with obstruction, without gangrene
CPT/HCPCS: 36415; 85025

== ENCOUNTER → 2019-07-09 | Outpatient (CLI) | payer OTHER | END | disposition home or self-care (01) | LOC: LABWHC1 08:50 | PROVIDERS: ATTEND Surgery | DX: U07.1 COVID-19 (principal) | CPT/HCPCS: 87635 ==

== ENCOUNTER → 2019-07-11 | Day surgery (SDC) | payer OTHER ==
[2019-07-10 10:46] VITALS: BMI 27.4
[~2019-07-11] MED LIST: ACETAMINOPHEN TAB 500 MG TAB PO ONE; ALFENTANIL 500 MCG/ML 2 ML AMP IV ONE; BUPIVACAIN-EPI 0.25%-1:200,000 30 ML VIAL SQ ONE; DEXAMETHASONE SOD PHOSPHATE 10 MG/ML 1 ML VIAL IV ONE; GLYCOPYRROLATE 0.2 MG/ML 2 ML VIAL ONE; HEPARIN SODIUM,PORCINE 5,000 UNIT/ML 1 ML VIAL SQ ONE; HYDROcodone/APAP 5-325MG 1 EACH TAB PO ONE; KETAMINE 10 MG/ML 20 ML VIAL ONE; KETOROLAC 30 MG/ML 1 ML VIAL IVP SCH; KETOROLAC 30 MG/ML 1 ML VIAL ONE; LIDOCAINE 1% (10MG/ML) FOR IV START INTRADERMA PRN; LIDOCAINE 1% INJ 10MG/ML (20 ML MDV) ONE; METOCLOPRAMIDE 5 MG/ML 2 ML VIAL IVP PRN; MIDAZOLAM 2 MG/2 ML VIAL ONE; NEOSTIGMINE 1 MG/ML 10 ML VIAL ONE; ONDANSETRON 4 MG/2 ML VIAL IVP ONE; PROPOFOL 10 MG/ML 20 ML VIAL IV ONE; ROCURONIUM BROMIDE 10 MG/ML 5 ML VIAL IV ONE; SUCCINYLCHOLINE CHLORIDE 100 MG/5 ML SYR IV ONE
[2019-07-11 06:32] VITALS: RESP 16
[2019-07-11] MEDS: LACTATED RINGERS 1,000 ML IV SCH ×2 (07:10→11:09)
[2019-07-11 07:25] LABS: MCH 30.1 pg (25.0-35.0); MCHC 33.4 g/dL (31.0-37.0); MCV 90.1 fL (80.0-100.0); Mean Platelet Volume 9.2; Platelet Count 303 k/uL (150-450); RBC 4.66 m/uL (3.80-5.40); RDW 13.3 % (11.5-15.5)
--- NOTE | 2019-07-11 07:42 | P.GSHP ---
History of Present Illness H&P Date: 07/11/19 Chief Complaint: Incisional hernia incarcerated This a 63-year-old female who presents today for laparoscopic robotic repair of incisional hernia. Patient developed an incisional hernia at her epigastric trocar site from previous laparoscopic cholecystectomy. She returns today for repair. The hernia is incarcerated with some omentum. Past Medical History Past Medical History: Hypertension Additional Past Medical History / Comment(s): RLS, ALLERGIES History of Any Multi-Drug Resistant Organisms: None Reported Past Surgical History: Section, Cholecystectomy Past Anesthesia/Blood Transfusion Reactions: No Reported Reaction Past Psychological History: No Psychological Hx Reported Smoking Status: Former smoker Past Alcohol Use History: None Reported Additional Past Alcohol Use History / Comment(s): QUIT 1 WEEK AGO, HX OF 1/2 TO 1 PPD, STARTED SMOKING AGE 18. Past Drug Use History: None Reported - Past Family History Mother Family Medical History: No Reported History Medications and Allergies Home Medications Medication Instructions Recorded Confirmed Type Ergocalciferol [Vitamin D2] 50,000 unit PO WEEKLY 11/09/18 07/11/19 History Lisinopril-Hctz 20-12.5 mg 1 tab PO DAILY 11/09/18 07/11/19 History [Zestoretic 20-12.5] Montelukast [Singulair] 10 mg PO HS 11/09/18 07/11/19 History [place]-3/Dha/Epa/Fish Oil [Fish Oil 1 cap PO DAILY 11/09/18 07/11/19 History 500 mg Softgel] rOPINIRole HCL [Requip] 0.25 mg PO HS 11/09/18 07/11/19 History Multivit with Calcium,Iron,Min 1 each PO DAILY 07/10/19 07/11/19 History [Women's Multivitamin] Varenicline [Chantix Continuing 1 mg PO BID 07/10/19 07/11/19 History Pack] Allergies Allergy/AdvReac Type Severity Reaction Status Date / Time aspirin Allergy Unknown SKIN TURNS Verified 07/11/19 06:25 RED shellfish derived [Shrimp] Allergy Unknown Rash/Hives Verified 07/11/19 06:25 Iodinated Contrast Media Allergy Rash/Hives Verified 07/11/19 06:25 [Iodinated Contrast- Oral and IV Dye] SALT Allergy Unknown Rash/Hives Uncoded 05/13/20 06:25 Surgical - Exam Vital Signs Temp Pulse Resp BP Pulse Ox 97.9 F 88 16 117/74 95 07/11/19 06:29 07/11/19 06:29 07/11/19 06:29 07/11/19 06:29 07/11/19 06:29 - General well developed, well nourished, no distress - Eyes PERRL - ENT normal pinna - Neck no masses - Respiratory normal expansion - Cardiovascular Rhythm: regular - Abdomen Abdomen: soft, non tender, surgical scars (Laparoscopic ostectomy) Hernia: incisional (3 cm incision hernia in the epigastric position, incarcerated) Results - Labs 07/11/19 07:10 Assessment and Plan Assessment: Incarcerated incisional hernia. We'll perform laparoscopic robotic-assisted repair.
--- NOTE | 2019-07-11 08:34 | P.OP ---
Date of Procedure: 07/11/19 Preoperative Diagnosis: incisional hernia incarcerated Postoperative Diagnosis: Adhesions Incarcerated incisional hernia Procedure(s) Performed: Diagnostic laparoscopy Open repair of incarcerated incisional hernia Anesthesia: YAA Surgeon: Jagdeep Wilson Estimated Blood Loss (ml): 10 Pathology: none sent Condition: stable Disposition: PACU Description of Procedure: The patient's placed on the operating table in the supine position. She received general anesthesia. Her abdomen was prepped and draped usual fashion. Patient had an incisional hernia located in the epigastric position. A Veress needles placed in the left upper quadrant and then the abdomen was insufflated. After adequate insufflation a 5 mL trochars placed in the left lower quadrant. There were significant adhesions seen throughout the abdominal cavity. Due to the dense adhesions inside performed A open repair of incisional hernia. The trochars withdrawn. The gas was desufflated. Next an incision was made at the hernia site. And then using left cautery subcu tissue divided. The fascia was exposed using left cautery. And then the hernia sac was opened and the incarcerated omentum was placed back into the pleural cavity. The fascial defect was then closed using 3-0 Ethibond suture and #1 stratafix suture. The wound Speck Wallace. Resolving seen. Skin was closed interrupted 3-0 Monocryl suture. Dermabond was applied. Patient top she will was sent to recovery room in stable condition.
[2019-07-11 08:35] VITALS: TEMP 97.3
[2019-07-11] MEDS: HYDROmorphone 0.5 MG/0.5 ML SYRINGE IVP PRN ×2 (08:47→08:52)
[2019-07-11 11:09] VITALS: BP 114/64; PULSE 98
== END | disposition home or self-care (01) ==
LOC: OR 06:06
PROVIDERS: ATTEND Surgery
DX: K43.0 Incisional hernia with obstruction, without gangrene (principal); Z53.31 Laparoscopic surgical procedure converted to open procedure; K66.0 Peritoneal adhesions (postprocedural) (postinfection); I10 Essential (primary) hypertension; E78.5 Hyperlipidemia, unspecified; G25.81 Restless legs syndrome; Z87.891 Personal history of nicotine dependence; Z90.49 Acquired absence of other specified parts of digestive tract; Z79.899 Other long term (current) drug therapy; Z98.891 History of uterine scar from previous surgery; Z91.013 Allergy to seafood; Z88.6 Allergy status to analgesic agent; Z91.041 Radiographic dye allergy status
CPT/HCPCS: 85027; 49561; J2250; J1644; J1100; J2710; J0690; J2405; J2001; J1885; J0330; J2704; J1170

== ENCOUNTER 2019-09-02 08:33 | Emergency (ER) | payer OTHER ==
[2019-09-02 08:37] VITALS: RESP 18; TEMP 98
[2019-09-02] MEDS ORDERED: FAMOTIDINE 20 MG/2 ML VIAL IV STA (08:49)
[2019-09-02] MEDS ORDERED: diphenhydrAMINE 50 MG/ML 1 ML VIAL IVP STA (08:49)
[2019-09-02] MEDS ORDERED: methylPREDNISolone SOD SUCCI 125 MG/2 ML VIAL IV STA (08:49)
[2019-09-02] MEDS ORDERED: SODIUM CHLORIDE 0.9% 1,000 ML IV ONE (08:51)
--- NOTE | 2019-09-02 08:54 | ED ---
Allergic Reaction HPI - General Chief complaint: Allergic Reaction Stated complaint: allergic reaction Time Seen by Provider: 09/02/19 08:38 Source: patient, RN notes reviewed, old records reviewed Mode of arrival: ambulatory Limitations: no limitations - History of Present Illness Initial Comments: Patient is a 63-year-old female who presents return today for concern for an ALLERGIC reaction. Patient reports that she was started on Cipro and Flagyl last week for diverticulitis. She reports improvement of the symptoms at this time. She states that last night she started noticed some swelling in her upper lip. Patient reports that she also takes lisinopril and has been on this medication for many years. Patient states that she noticed some itching over her skin today as well. Patient states that she has no significant tongue swelling at this time or airway compromise. She reports that she has not taken any Benadryl or other medications at this time to help with symptoms. - Related Data Home Medications Medication Instructions Recorded Confirmed Ergocalciferol [Vitamin D2] 50,000 unit PO WEEKLY 11/09/18 07/11/19 Lisinopril-Hctz 20-12.5 mg 1 tab PO DAILY 11/09/18 07/11/19 [Zestoretic 20-12.5] Montelukast [Singulair] 10 mg PO HS 11/09/18 07/11/19 [place]-3/Dha/Epa/Fish Oil [Fish Oil 1 cap PO DAILY 11/09/18 07/11/19 500 mg Softgel] rOPINIRole HCL [Requip] 0.25 mg PO HS 11/09/18 07/11/19 Multivit with Calcium,Iron,Min 1 each PO DAILY 07/10/19 07/11/19 [Women's Multivitamin] Varenicline [Chantix Continuing 1 mg PO BID 07/10/19 07/11/19 Pack] Previous Rx's Medication Instructions Recorded Docusate [Colace] 100 mg PO BID #20 capsule 07/11/19 HYDROcodone/APAP 5-325MG [[place] 1 tab PO Q6HR PRN #10 tab 07/11/19 5-325] diphenhydrAMINE [Benadryl] 25 mg PO QID PRN #20 capsule 09/02/19 predniSONE [Deltasone] 20 mg PO DIRECTED #12 tab 09/02/19 Allergies Allergy/AdvReac Type Severity Reaction Status Date / Time aspirin Allergy Unknown SKIN TURNS Verified 09/02/19 08:37 RED shellfish derived [Shrimp] Allergy Unknown Rash/Hives Verified 09/02/19 08:37 Iodinated Contrast Media Allergy Rash/Hives Verified 09/02/19 08:37 [Iodinated Contrast- Oral and IV Dye] SALT Allergy Unknown Rash/Hives Uncoded 09/02/19 08:37 Review of Systems ROS Statement: Those systems with pertinent positive or pertinent negative responses have been documented in the HPI. ROS Other: All systems not noted in ROS Statement are negative. Past Medical History Past Medical History: Hypertension Additional Past Medical History / Comment(s): RLS, ALLERGIES History of Any Multi-Drug Resistant Organisms: None Reported Past Surgical History: Section, Cholecystectomy Past Anesthesia/Blood Transfusion Reactions: No Reported Reaction Past Psychological History: No Psychological Hx Reported Smoking Status: Former smoker Past Alcohol Use History: None Reported Past Drug Use History: None Reported - Past Family History Mother Family Medical History: No Reported History General Exam - General Exam Comments Initial Comments: 63-year-old female. Alert and oriented 3. Limitations: no limitations General appearance: alert, in no apparent distress Head exam: Present: atraumatic, normocephalic, normal inspection Eye exam: Present: normal appearance, PERRL, EOMI. Absent: scleral icterus, conjunctival injection, periorbital swelling ENT exam: Present: normal exam, mucous membranes moist, other (Patient has evidence of upper lip swelling concerning for angioedema. No tongue swelling at this time.) Neck exam: Present: normal inspection. Absent: tenderness, meningismus, lymphadenopathy Respiratory exam: Present: normal lung sounds bilaterally. Absent: respiratory distress, wheezes, rales, rhonchi, stridor Cardiovascular Exam: Present: regular rate GI/Abdominal exam: Present: soft, normal bowel sounds. Absent: distended, tenderness, guarding, rebound, rigid Back exam: Present: normal inspection Neurological exam: Present: alert, oriented X3, CN II-XII intact Psychiatric exam: Present: normal affect, normal mood Skin exam: Present: warm, dry, intact, normal color. Absent: rash Course Vital Signs 09/02/19 09/02/19 08:34 11:30 Temperature 98.0 F 98.0 F Pulse Rate 85 81 Respiratory 18 18 Rate Blood Pressure 109/64 112/74 O2 Sat by Pulse 99 99 Oximetry Medical Decision Making - Medical Decision Making 63-year-old female presents emergency room today with upper lip angioedema concern for ALLERGIC reaction she initially thought was related to the Cipro and Flagyl. She's been on his antibiotics for a week for diverticulitis. She also takes lisinopril has been on this for many years. I discussed him seem more related to lisinopril-induced angioedema. She has no significant difficulty breathing or tongue swelling. Patient at this time does have some improvement of the upper lip swelling. I discussed discontinuing the antibiotic and lisinopril and advised follow-up with PCP in regards to changing blood pressure medication. Patient is agreeable to this plan. Discussed return parameters if there is any difficulty breathing or swallowing to return promptly. Patient is agreeable to this plan. - Lab Data Result diagrams: 09/02/19 09:09 09/02/19 09:09 Lab Results 09/02/19 09/02/19 09/02/19 Range/Units 09:09 09:09 09:09 WBC 9.4 (3.8-10.6) k/uL RBC 4.97 (3.80-5.40) m/uL Hgb 15.0 (11.4-16.0) gm/dL Hct 45.0 (34.0-46.0) % MCV 90.7 (80.0-100.0) fL MCH 30.1 (25.0-35.0) pg MCHC 33.2 (31.0-37.0) g/dL RDW 12.7 (11.5-15.5) % Plt Count 348 (150-450) k/uL Neutrophils % 67 % Lymphocytes % 24 % Monocytes % 4 % Eosinophils % 2 % Basophils % 0 % Neutrophils # 6.3 (1.3-7.7) k/uL Lymphocytes # 2.3 (1.0-4.8) k/uL Monocytes # 0.4 (0-1.0) k/uL Eosinophils # 0.1 (0-0.7) k/uL Basophils # 0.0 (0-0.2) k/uL PT 9.9 (9.0-12.0) sec INR 0.9 (<1.2) APTT 23.4 (22.0-30.0) sec Sodium 137 (137-145) mmol/L Potassium 4.3 (3.5-5.1) mmol/L Chloride 103 (98-107) mmol/L Carbon Dioxide 24 (22-30) mmol/L Anion Gap 10 mmol/L BUN 14 (7-17) mg/dL Creatinine 0.68 (0.52-1.04) mg/dL Est GFR (CKD-EPI)AfAm >90 (>60 ml/min/1.73 sqM) Est GFR (CKD-EPI)NonAf >90 (>60 ml/min/1.73 sqM) Glucose 110 H (74-99) mg/dL Calcium 10.1 (8.4-10.2) mg/dL Troponin I (0.000-0.034) ng/mL 09/02/19 Range/Units 09:09 WBC (3.8-10.6) k/uL RBC (3.80-5.40) m/uL Hgb (11.4-16.0) gm/dL Hct (34.0-46.0) % MCV (80.0-100.0) fL MCH (25.0-35.0) pg MCHC (31.0-37.0) g/dL RDW (11.5-15.5) % Plt Count (150-450) k/uL Neutrophils % % Lymphocytes % % Monocytes % % Eosinophils % % Basophils % % Neutrophils # (1.3-7.7) k/uL Lymphocytes # (1.0-4.8) k/uL Monocytes # (0-1.0) k/uL Eosinophils # (0-0.7) k/uL Basophils # (0-0.2) k/uL PT (9.0-12.0) sec INR (<1.2) APTT (22.0-30.0) sec Sodium (137-145) mmol/L Potassium (3.5-5.1) mmol/L Chloride (98-107) mmol/L Carbon Dioxide (22-30) mmol/L Anion Gap mmol/L BUN (7-17) mg/dL Creatinine (0.52-1.04) mg/dL Est GFR (CKD-EPI)AfAm (>60 ml/min/1.73 sqM) Est GFR (CKD-EPI)NonAf (>60 ml/min/1.73 sqM) Glucose (74-99) mg/dL Calcium (8.4-10.2) mg/dL Troponin I <0.012 (0.000-0.034) ng/mL 09/02/19 09:53 EKG performed at 9:47 AM shows normal sinus rhythm normal EKG. Ventricular rate of 71 bpm. Verbal is 162 ms. QRS duration is 86 ms. QT QTc is 390/423 ms. Disposition Clinical Impression: Angioedema of lips Disposition: HOME SELF-CARE Condition: Good Instructions (If sedation given, give patient instructions): Angioedema (ED) Additional Instructions: Patient advised to discontinue lisinopril and your antibiotics. Continue to dose Benadryl for the next day as well as steroid. Return to emergency department if any alarming signs or symptoms occur. Prescriptions: diphenhydrAMINE [Benadryl] 25 mg PO QID PRN #20 capsule PRN Reason: Itching predniSONE [Deltasone] 20 mg PO DIRECTED #12 tab Is patient prescribed a controlled substance at d/c from ED?: No Referrals: Tamiko Vincent DO [Primary Care Provider] - 1-2 days Time of Disposition: 10:41
[2019-09-02 09:29] LABS: Basophils % (A) 0 %; Eosinophils # (A) 0.1 k/uL (0-0.7); Eosinophils % (A) 2 %; Lymphocytes # (A) 2.3 k/uL (1.0-4.8); Lymphocytes % (A) 24 %; MCH 30.1 pg (25.0-35.0); MCHC 33.2 g/dL (31.0-37.0); MCV 90.7 fL (80.0-100.0); Mean Platelet Volume 7.4; Monocytes # (A) 0.4 k/uL (0-1.0); Monocytes % (A) 4 %; Neutrophils # (A) 6.3 k/uL (1.3-7.7); Neutrophils % (A) 67 %; Platelet Count 348 k/uL (150-450); RBC 4.97 m/uL (3.80-5.40); RDW 12.7 % (11.5-15.5); WBC 9.4 k/uL (3.8-10.6)
[2019-09-02 09:38] LABS: African American GFR (CKD) >90 (>60 ml/min/1.73 sqM); Anion Gap 10 mmol/L; Blood Urea Nitrogen 14 mg/dL (7-17); Calcium 10.1 mg/dL (8.4-10.2); Carbon Dioxide 24 mmol/L (22-30); Chloride 103 mmol/L (98-107); Glucose 110 mg/dL (74-99); Non-African American GFR(CKD) >90 (>60 ml/min/1.73 sqM); Potassium 4.3 mmol/L (3.5-5.1); Sodium 137 mmol/L (137-145)
[2019-09-02 09:39] LABS: INR 0.9 (<1.2); Partial Thromboplastin Time 23.4 sec (22.0-30.0); Prothrombin Time 9.9 sec (9.0-12.0)
[2019-09-02 11:32] VITALS: BP 112/74; PULSE 81
== END 2019-09-02 11:30 | disposition home or self-care (01) ==
LOC: EC 08:33
DX: T78.3XXA Angioneurotic edema, initial encounter (principal); I10 Essential (primary) hypertension; G25.81 Restless legs syndrome; Z79.899 Other long term (current) drug therapy; Z87.891 Personal history of nicotine dependence; Z88.6 Allergy status to analgesic agent; Z91.013 Allergy to seafood; Z91.041 Radiographic dye allergy status; Z91.018 Allergy to other foods
CPT/HCPCS: 36415; 93005; 80048; 84484; 85025; 85610; 85730; 99284; 96374; 96375 ×2; 96361 ×2; J1200; J2930

== ENCOUNTER → 2020-08-15 | Outpatient (CLI) | payer OTHER ==
--- NOTE | 2020-08-15 12:55 | CTL ---
EXAMINATION TYPE: CT Low Dose Lung DATE OF EXAM ORDERED: 08/15/2020 HISTORY: Tobacco use, personal history nicotine dependence. Lung cancer screening CT DLP: 90.[address] CTDI: 2.8 mGy Automated exposure control for dose reduction was used. SCREENING VISIT: Initial COMPARISON: CTA chest 11/12/2018 TECHNIQUE: Low dose computed tomography scan was performed through the chest at 1 mm thick sections a nd reconstructed images in the coronal plane at [address] DIAGNOSTIC QUALITY: Satisfactory FINDINGS: LUNG NODULES: Present, detailed below: #1 there is a 0.4 cm peripheral nodule in the left lateral upper lobe. Series 4 image 54. There may be some minimal atelectasis along the mediastinal border at the right middle lobe. LUNGS: COPD: Severity: None Fibrosis: Severity: 9 Lymph nodes: None Other findings: There is an enlarged right lobe thyroid. Consider follow-up ultrasound. RIGHT PLEURAL SPACE: Effusion: None Calcification: None Thickening: None Pneumothorax: None LEFT PLEURAL SPACE: Effusion: None Calcification: None Thickening: None Pneumothorax: None HEART: Heart Size: Normal Coronary calcification: None Pericardial effusion: None OTHER FINDINGS: Upper abdomen: Normal Bony thorax: Supraclavicular region: Normal Other: Ascending thoracic aorta at the level the main pulmonary artery measures 3.1 cm. The main pul monary artery at the bifurcation measures 2.2 cm. IMPRESSION: 1. 0.4 cm nodule peripheral left upper lung field. Follow-up in 6 months is recommended. 2. Enlarged right lobe thyroid. Ultrasound recommended for additional evaluation. FOLLOW UP CT CHEST RECOMMENDATION: Follow up CT chest [address] LUNG RAD: Lung-Rad 3 Probably Benign
== END | disposition home or self-care (01) ==
LOC: RADCTMAIN 07:02
PROVIDERS: ATTEND Family Medicine
DX: Z12.2 Encounter for screening for malignant neoplasm of respiratory organs (principal); R91.1 Solitary pulmonary nodule; E04.9 Nontoxic goiter, unspecified; Z87.891 Personal history of nicotine dependence
CPT/HCPCS: 71271

== ENCOUNTER → 2020-09-05 | Outpatient (CLI) | payer OTHER | END | disposition home or self-care (01) | DX: I08.8 Other rheumatic multiple valve diseases (principal) ==

== ENCOUNTER → 2020-11-06 | Day surgery (SDC) | payer OTHER ==
[~2020-11-06] MED LIST changes: -ACETAMINOPHEN TAB 500 MG TAB PO ONE; -ALFENTANIL 500 MCG/ML 2 ML AMP IV ONE; -BUPIVACAIN-EPI 0.25%-1:200,000 30 ML VIAL SQ ONE; -DEXAMETHASONE SOD PHOSPHATE 10 MG/ML 1 ML VIAL IV ONE; -GLYCOPYRROLATE 0.2 MG/ML 2 ML VIAL ONE; -HEPARIN SODIUM,PORCINE 5,000 UNIT/ML 1 ML VIAL SQ ONE; -HYDROcodone/APAP 5-325MG 1 EACH TAB PO ONE; -KETAMINE 10 MG/ML 20 ML VIAL ONE; -KETOROLAC 30 MG/ML 1 ML VIAL IVP SCH; -KETOROLAC 30 MG/ML 1 ML VIAL ONE; -LIDOCAINE 1% (10MG/ML) FOR IV START INTRADERMA PRN; -LIDOCAINE 1% INJ 10MG/ML (20 ML MDV) ONE; -METOCLOPRAMIDE 5 MG/ML 2 ML VIAL IVP PRN; -MIDAZOLAM 2 MG/2 ML VIAL ONE; -NEOSTIGMINE 1 MG/ML 10 ML VIAL ONE; -ONDANSETRON 4 MG/2 ML VIAL IVP ONE; -ROCURONIUM BROMIDE 10 MG/ML 5 ML VIAL IV ONE; -SUCCINYLCHOLINE CHLORIDE 100 MG/5 ML SYR IV ONE
[2020-11-06 11:00] VITALS: RESP 16; TEMP 96
[2020-11-06] MEDS: LACTATED RINGERS 1,000 ML IV SCH ×2 (11:01→11:24)
[2020-11-06 11:02] LABS: Glucose,Whole Blood 114 mg/dL (75-99)
--- NOTE | 2020-11-06 11:32 | P.GSHP ---
History of Present Illness H&P Date: 11/06/20 Chief Complaint: Epigastric pain Cyst 65-year-old female with complaints of epigastric pain. Patient presents today for EGD. Past Medical History Past Medical History: Hypertension Additional Past Medical History / Comment(s): RLS, ALLERGIES History of Any Multi-Drug Resistant Organisms: None Reported Past Surgical History: Section, Cholecystectomy Past Anesthesia/Blood Transfusion Reactions: No Reported Reaction Past Psychological History: No Psychological Hx Reported Past Alcohol Use History: None Reported Past Drug Use History: None Reported - Past Family History Mother Family Medical History: No Reported History Medications and Allergies Home Medications Medication Instructions Recorded Confirmed Type Ergocalciferol [Vitamin D2] 50,000 unit PO WEEKLY 11/09/18 11/06/20 History Montelukast [Singulair] 10 mg PO HS 11/09/18 11/06/20 History [place]-3/Dha/Epa/Fish Oil [Fish Oil 1 cap PO DAILY 11/09/18 11/06/20 History 500 mg Softgel] rOPINIRole HCL [Requip] 0.25 mg PO HS 11/09/18 11/06/20 History Multivit with Calcium,Iron,Min 1 each PO DAILY 07/10/19 11/06/20 History [Women's Multivitamin] Varenicline [Chantix Continuing 1 mg PO BID 07/10/19 11/06/20 History Pack] diphenhydrAMINE [Benadryl] 25 mg PO QID PRN #20 capsule 09/02/19 11/06/20 Rx Allergies Allergy/AdvReac Type Severity Reaction Status Date / Time aspirin Allergy Unknown SKIN TURNS Verified 11/06/20 10:42 RED shellfish derived [Shrimp] Allergy Unknown Rash/Hives Verified 11/06/20 10:42 Iodinated Contrast Media Allergy Rash/Hives Verified 11/06/20 10:42 [Iodinated Contrast- Oral and IV Dye] lisinopril Allergy Swelling Verified 11/06/20 10:45 SALT Allergy Unknown Rash/Hives Uncoded 09/02/19 08:37 Surgical - Exam Vital Signs Temp Pulse Resp BP Pulse Ox 96 F L 81 16 130/86 97 11/06/20 10:46 11/06/20 10:46 11/06/20 10:46 11/06/20 10:46 11/06/20 10:46 - General well developed, well nourished, no distress - Eyes PERRL - ENT normal pinna - Neck no masses - Respiratory normal expansion - Cardiovascular Rhythm: regular - Abdomen Abdomen: soft, non tender Results - Labs Abnormal Lab Results - Last 24 Hours (Table) 11/06/20 Range/Units 10:58 POC Glucose (mg/dL) 114 H (75-99) mg/dL Assessment and Plan Assessment: Epigastric pain. We'll perform EGD.
--- NOTE | 2020-11-06 11:39 | P.OP ---
Date of Procedure: 11/06/20 Preoperative Diagnosis: Epigastric pain Postoperative Diagnosis: Antral gastritis Procedure(s) Performed: EGD Anesthesia: MAC Surgeon: Jagdeep Wilson Pathology: other (Antral) Condition: stable Disposition: PACU Description of Procedure: The patient's placed on the endoscopy table in the lateral position. She received IV sedation. The gastroscope was placed oropharynx passed in the esophagus and then into the stomach. Scope was then placed through the pylorus. The first and second portion duodenum appeared normal. Scope was then brought back and the antrum and this appeared to be inflamed. A A biopsies performed. The scope was retroflexed and remainder of the stomach appeared normal. The GE junction was at 40 cms. The distal esophagus appeared minimally inflamed a biopsies performed. The proximal esophagus appeared normal. Scope withdrawn for patient.
[2020-11-06 12:01] VITALS: BP 119/67; PULSE 75
== END ==
LOC: ORWHC2ENDO 09:34
PROVIDERS: ATTEND Surgery
DX: K29.50 Unspecified chronic gastritis without bleeding (principal); I10 Essential (primary) hypertension; K20.90 Esophagitis, unspecified without bleeding; Z88.8 Allergy status to other drugs, medicaments and biological substances; Z90.49 Acquired absence of other specified parts of digestive tract
CPT/HCPCS: 43239; 88305; J2704

== ENCOUNTER → 2021-10-01 | Outpatient (CLI) | payer BC ==
--- NOTE | 2021-10-01 22:41 | CT ---
EXAMINATION TYPE: CT soft tissue neck wo con CT DLP: 386 mGycm, Automated exposure control for dose reduction was used. DATE OF EXAM: 10/01/2021 6:10 PM COMPARISON: CT low dose lung 08/15/2020. CLINICAL INDICATION:Female, 66 years old with history of E04.1 Thyroid nodule, f/u thyroid nodule TECHNIQUE: Standard enhanced CT of the neck. Axial sections with coronal and sagittal reformats were obtained. Contrast used: None Oral contrast used: None FINDINGS: Brain: Visualized portions are grossly unremarkable. Orbits: Unremarkable Sinuses: Mucosal thickening scattered throughout the nasal sinuses most pronounced in the maxillary s inuses. Spaces of the neck: There is a 1.8 x 12 mm soft tissue mass within the right inferior superficial par otid gland. Musculoskeletal: Scattered mild multilevel disc degeneration changes. Multilevel disc degeneration ch anges throughout the spine with straightening of the cervical spine. Lymph nodes: Multiple nonenlarged lymph nodes are seen along both anterior chains of the neck. Vascular structures: Grossly unremarkable. Thoracic Inlet/airway: Airway is patent. The lung apices are clear. Soft tissues/Thyroid: Enlarged right thyroid gland with nodule measuring up to 3.6 x 2.2 x 2.0 cm. Other: none. IMPRESSION 1. Right thyroid nodule. A dedicated thyroid ultrasound is recommended for evaluation of the thyroid nodules. 2. Right inferior parotid gland soft tissue nodule measuring up to 1.8 x 1.2 cm. Should also be eval uated with ultrasound.
== END | disposition home or self-care (01) ==
LOC: RADCTMAIN 17:17
PROVIDERS: ATTEND Family Medicine
DX: E04.1 Nontoxic single thyroid nodule (principal)
CPT/HCPCS: 70490

== ENCOUNTER → 2021-10-09 | Outpatient (CLI) | payer BC ==
--- NOTE | 2021-10-12 08:23 | MM ---
Reason for Exam: Screening (asymptomatic). Last mammogram was performed 2 year(s) and 5 month(s) ago. Patient History: Menarche at age 14. First Full-Term at age 32. Late child-bearing (after 32). Postmenopausal. Sister had breast cancer, age 40. Risk Values: Reena 5 year model risk: 3.3%. NCI Lifetime model risk: 12.7%. Prior Study Comparison: 04/06/2017 Bilateral Screening Mammogram, [facility]. 04/07/2018 Bilateral Screening Mammogram, [facility]. 05/04/2019 Bilateral Screening Mammogram, [facility]. Tissue Density: There are scattered fibroglandular densities. Findings: Analyzed By CAD. There is no suspicious group of microcalcifications or new suspicious mass in either breast. Benign-appearing bilateral calcifications. No significant change from prior exams. Overall Assessment: Benign, BI-RAD 2 Management: Screening Mammogram of both breasts in 1 year. A clinical breast exam by your physician is recommended on an annual basis and results should be correlated with mammographic findings. Electronically signed and approved by: Navarro Bartlett D.O.
== END | disposition home or self-care (01) ==
LOC: RADMAMWWP 13:17
PROVIDERS: ATTEND Family Medicine
DX: Z12.31 Encounter for screening mammogram for malignant neoplasm of breast (principal); Z78.0 Asymptomatic menopausal state; Z80.3 Family history of malignant neoplasm of breast
CPT/HCPCS: 77067

== ENCOUNTER 2022-01-15 08:50 | Day surgery (SDC) | payer BC ==
[2022-01-14 08:11] VITALS: BMI 25.1
[~2022-01-15 08:50] MED LIST changes: +LACTATED RINGERS 1,000 ML IV SCH; +LIDOCAINE 1% (10MG/ML) FOR IV START INTRADERMA PRN; -PROPOFOL 10 MG/ML 20 ML VIAL IV ONE
[2022-01-15 09:35] VITALS: TEMP 97
[2022-01-15 09:35] LABS: Glucose,Whole Blood 102 mg/dL (70-110)
[2022-01-15] MEDS ORDERED: LACTATED RINGERS 1,000 ML IV ONE (09:36)
[2022-01-15] MEDS ORDERED: PROPOFOL 10 MG/ML 20 ML VIAL IV ONE (09:57)
[2022-01-15] MEDS ORDERED: LIDOCAINE 2% INJ 20 MG/ML (2 ML VIAL) ONE (09:57)
--- NOTE | 2022-01-15 10:21 | P.PCN ---
Date of Procedure: 01/15/22 Procedure(s) Performed: BRIEF HISTORY: Patient is a 66-year-old pleasant female scheduled for an elective colonoscopy as a part of screening for colon cancer/positive cologuard PROCEDURE PERFORMED: Colonoscopy. PREOPERATIVE DIAGNOSIS: Screening for colon cancer/positive cologuard. IV sedation per Anesthesia. PROCEDURE: After informed consent was obtained, the patient, was brought into the endoscopy unit. IV sedation was administered by Anesthesia under continuous monitoring. Digital rectal examination was normal. Initially the Olympus CF-160 flexible video colonoscope was then inserted in the rectum, gradually advanced into the cecum without any difficulty. Careful examination was performed as the scope was gradually being withdrawn. Ileocecal valve and the appendiceal orifice were visualized and appeared normal. Prep was excellent. Mucosa of the cecum, ascending colon, transverse colon, descending colon, sigmoid colon, and rectum appeared normal. Retroflexion was performed in the rectum and no lesions were seen. Scattered sigmoid diverticulosis. The patient tolerated the procedure well. IMPRESSION: Normal-appearing colon from rectum to cecum with no evidence of colorectal neoplasia Scattered sigmoid diverticulosis. RECOMMENDATIONS: Findings of this examination were discussed with the patient as well as her family. She was advised to have a repeat screening colonoscopy in 10 years..
[2022-01-15 10:28] VITALS: RESP 16
[2022-01-15 10:41] VITALS: BP 126/82; PULSE 88
== END 2022-01-15 10:50 | disposition home or self-care (01) ==
LOC: ORWHC2ENDO 08:50
PROVIDERS: ATTEND Internal Medicine Gastroenterology
DX: Z12.11 Encounter for screening for malignant neoplasm of colon (principal); K57.30 Diverticulosis of large intestine without perforation or abscess without bleeding; R19.5 Other fecal abnormalities; F17.210 Nicotine dependence, cigarettes, uncomplicated; Z88.6 Allergy status to analgesic agent; Z88.5 Allergy status to narcotic agent; Z79.899 Other long term (current) drug therapy; Z98.891 History of uterine scar from previous surgery; Z98.890 Other specified postprocedural states
CPT/HCPCS: 45378; J2704; J2001

== ENCOUNTER → 2022-10-08 | Outpatient (CLI) | payer BC ==
--- NOTE | 2022-10-12 13:55 | CT ---
EXAMINATION TYPE: CT chest wo con DATE OF EXAM: 10/08/2022 COMPARISON: 08/15/2020 HISTORY: Cough. Non-specified abnormal finding of lung field. CT DLP: 239.[address] of the chest was performed with lung and mediastinal window settings submitted. The la ck of contrast limits evaluation of the vascular, mediastinal and parenchymal structures including th e upper abdomen. LUNGS: The lungs are clear and free of infiltrate. No atelectasis. No pleural effusion. No CT jessenia dence of interstitial lung disease. 3 mm peripheral pulmonary nodule left upper lobe image 20 sequenc e 4. No additional nodules present. MEDIASTINUM/MICKI: Thoracic aorta is of normal caliber with limited evaluation given lack of contrast . The heart is not enlarged. No evidence for mediastinal mass. No lymph nodes greater than 1cm. UPPER ABDOMEN: No significant abnormality is seen. OTHER: Again noted are gallstone like calcifications within the left upper quadrant are slightly imag ed with increasing surrounding fluid collection within the left upper quadrant measuring 12.0 cm x 3. 7 cm. Fluid collection has occurred in the interval since prior CT abdomen pelvis dated 04/20/2019. Co nsider dedicated CT of the abdomen and pelvis with contrast. IMPRESSION: 1. gallstone like calcifications within the left upper quadrant are slightly imaged with increasing surrounding fluid collection within the left upper quadrant measuring 12.0 cm x 3.7 cm. Fluid collect ion has occurred in the interval since prior CT abdomen pelvis dated 04/20/2019. Consider dedicated CT of the abdomen and pelvis with contrast. 2. stable left upper lobe pulmonary nodule.
== END | disposition home or self-care (01) ==
LOC: RADCTMAIN 15:00
PROVIDERS: ATTEND Family Medicine
DX: K80.20 Calculus of gallbladder without cholecystitis without obstruction (principal); R91.8 Other nonspecific abnormal finding of lung field
CPT/HCPCS: 71250

== ENCOUNTER → 2022-10-22 | Outpatient (CLI) | payer BC ==
--- NOTE | 2022-10-22 21:45 | BD ---
EXAMINATION TYPE: Axial Bone Density DATE OF EXAM: 10/22/2022 CLINICAL HISTORY: 67 years old Female. ICD-10 CODE: Z78.0 POST MENOPAUSAL WITHOUT HRT Height: 64.5" Weight: 138.9 FRAX RISK QUESTIONS: Alcohol (3 or more units per day): No Family History (Parent hip fracture): No Glucocorticoids (More than 3mos): No (Ex: prednisone, prednisolone, methylprednisolone, dexamethasone, and hydrocortisone). History of Fracture in Adulthood: No Secondary Osteoporosis: 1. Type 1 Diabetes: Patient is diabetic but unsure if Type 1 or 2 2. Hyperthyroidism: No 3. Menopause before 45: No 4. Malnutrition: No 5. Chronic liver disease: No Rheumatoid Arthritis: No Current Tobacco Use: Yes RISK FACTORS HISTORY OF: Hip Fracture (Right/Left): No Spine Fracture: No History of Wrist Fracture: No Surgery to Spine/Hip(right/left)/Wrist (right/left): No Family History of Osteoporosis: No Active: Yes Diet low in dairy products/other sources of calcium: No Postmenopausal woman: Yes Lost more than 2 inches in height since high school: No Frequent falls: No Poor Health: No Hyperparathyroidism: No Adrenal Insufficiency: No MEDICATIONS: Prednisone or other steroids: No Thyroid Medications: No Osteoporosis Medications: No Additional Medications: Blood pressure meds, metformin, cholesterol, vitamin D Additional History: None EXAM MEASUREMENTS: Bone mineral densitometry was performed using the [employer]. Bone mineral density as measured about the Lumbar spine is: ----- L1-L4(G/cm2): 1.049 T Score Values are as follows: ----- L1: -1.1 ----- L2: -1.4 ----- L3: -1.0 ----- L4: -1.0 ----- L1-L4: -1.1 Z Score Values are as follows: ----- L1: 0.5 ----- L2: 0.2 ----- L3: 0.7 ----- L4: 0.6 ----- L1-L4: 0.6 Bone density machine unable to locate 2018 bone density exam to compare, no spine scanned in patients 2010 bone density exam. Bone mineral density about the R hip (g/cm2): 0.963 Bone mineral density about the L hip (g/cm2): 0.983 T Score values are as follows: -----R Neck: -0.8 -----L Neck: -0.9 -----R Total: -0.4 -----L Total: -0.2 Z Score values are as follows: -----R Neck: 0.7 -----L Neck: 0.6 -----R Total: 0.9 -----L Total: 1.0 Bone mineral density has: decreased -9.2% since study of: 07/30/2010 (Bone density machine unable to lo gonzalo patients 2019 exam. FRAX%s: The graph provided illustrates a 7.4% chance for a major osteoporotic fx and a 0.9% chance fo r the hips probability for fx in 10 years time. IMPRESSION: Osteopenia (T Score between -2.5 and -1). There is slightly increased risk of fracture and the patient may be considered for treatment. Re-Screen 2-5 years. NOTE: T-SCORE=SD OF THE YOUNG ADULT MEAN.
--- NOTE | 2022-10-25 11:39 | MM ---
Reason for Exam: Screening (asymptomatic). Last screening mammogram was performed 12 month(s) ago. Patient History: Menarche at age 14. First Full-Term at age 32. Late child-bearing (after 32). Postmenopausal. Sister had breast cancer, age 40. Risk Values: Reena 5 year model risk: 3.3%. NCI Lifetime model risk: 12.3%. Prior Study Comparison: 04/07/2018 Bilateral Screening Mammogram, [facility]. 05/04/2019 Bilateral Screening Mammogram, [facility]. 10/09/2021 Bilateral MG screening mammo w CAD, [facility]. Tissue Density: The breast tissue is heterogeneously dense. This may lower the sensitivity of mammography. Findings: Analyzed By CAD. There is no suspicious group of microcalcifications or new suspicious mass in either breast. Overall Assessment: Negative, BI-RAD 1 Management: Screening Mammogram of both breasts in [address] [facility] will attempt to contact patient to return for supplemental views and ultrasound if indicated. Patient should continue monthly self-breast exams. A clinical breast exam by your physician is recommended on an annual basis. This exam should not preclude additional follow-up of suspicious palpable abnormalities. Note on Reena scores and lifetime risk: 1. A Reena score greater than 3% is considered moderate risk. If this is the case, consider specialist referral to assess eligibility for a risk reducing agent. 2. If overall lifetime risk for the development of breast cancer is 20% or higher, the patient may qualify for future screening with alternating mammogram and breast MRI. Electronically signed and approved by: Kevyn Vasquez DO
== END | disposition home or self-care (01) ==
LOC: RADBDWWP 09:42
PROVIDERS: ATTEND Family Medicine
DX: Z12.31 Encounter for screening mammogram for malignant neoplasm of breast (principal); M85.89 Other specified disorders of bone density and structure, multiple sites; Z78.0 Asymptomatic menopausal state; Z80.3 Family history of malignant neoplasm of breast
CPT/HCPCS: 77063; 77067; 77080

== ENCOUNTER → 2023-04-13 | Outpatient (CLI) | payer BC ==
--- NOTE | 2023-04-14 13:06 | NM ---
EXAMINATION TYPE: NM thyroid image only DATE OF EXAM: 04/13/2023 COMPARISON: CT 10/01/2021. CLINICAL INDICATION: Female, 67 years old with history of R22.0 LOCALIZED SWELLING, MASS AND LUMP, HE AD; TECHNIQUE: After the intravenous administration of 10.4 mCi Tc 99m Sodium Pertechnetate. FINDINGS: Asymmetric uptake within the right thyroid glands with the upper portion of the thyroid gland relativ carmine cold and the inferior medial portion of the right thyroid gland relatively high. On CT imaging th is corresponds with large right superior thyroid nodule and likely normal medial inferior thyroid gla nd. The left thyroid gland appears normal given correlation with prior CT. IMPRESSION: Suspected right cold superior thyroid nodule. Consider thyroid ultrasound for further evaluation of t his nodule.
== END | disposition home or self-care (01) ==
LOC: RADNMMAIN 10:51
PROVIDERS: ATTEND Family Medicine
DX: R22.0 Localized swelling, mass and lump, head (principal); R94.6 Abnormal results of thyroid function studies
CPT/HCPCS: 78013; A9512

== ENCOUNTER → 2023-11-25 | Outpatient (CLI) | payer BC ==
--- NOTE | 2023-11-27 12:52 | MM ---
Reason for Exam: Screening (asymptomatic). Last mammogram was performed 1 year(s) and 1 month(s) ago. Patient History: Menarche at age 14. First Full-Term at age 32. Late child-bearing (after 32). Postmenopausal. Sister had breast cancer, age 40. Risk Values: Reena 5 year model risk: 3.4%. NCI Lifetime model risk: 11.8%. Prior Study Comparison: 05/04/2019 Bilateral Screening Mammogram, [facility]. 10/09/2021 Bilateral MG screening mammo w CAD, [facility]. 10/22/2022 Bilateral MG 3D screening mammo w/cad, [facility]. Tissue Density: There are scattered areas of fibroglandular density. Findings: Analyzed By CAD. The pattern is symmetrical. Appears stable. No significant interval change. No suspicious groups of microcalcifications, spiculated or lobular masses, architectural distortion or other secondary signs of malignancy are mammographically apparent. Overall Assessment: Benign, BI-RAD 2 Management: Screening Mammogram of both breasts in 1 year. A negative mammogram report should not preclude additional follow up of suspicious palpable abnormalities. Patient should continue monthly self breast exam. A clinical breast exam by your physician is recommended on an annual basis and results should be correlated with mammographic findings. Note on Reena scores and lifetime risk: 1. A Reena score greater than 3% is considered moderate risk. If this is the case, consider specialist referral to assess eligibility for a risk reducing agent. 2. If overall lifetime risk for the development of breast cancer is 20% or higher, the patient may qualify for future screening with alternating mammogram and breast MRI. [facility], , 11/27/2023 12:49 PM. Electronically signed and approved by: Aaron Loaiza D.O. Radiologis
== END | disposition home or self-care (01) ==
LOC: RADMAMWWP 12:29
PROVIDERS: ATTEND Family Medicine
DX: Z12.31 Encounter for screening mammogram for malignant neoplasm of breast
CPT/HCPCS: 77063; 77067

== ENCOUNTER 2024-04-30 06:10 | Emergency (ER) | payer BC ==
--- NOTE | 2024-04-30 07:09 | XR ---
EXAMINATION TYPE: XR chest 2V DATE OF EXAM: 04/30/2024 6:48 AM COMPARISON: 11/10/2018 CLINICAL INDICATION: Female, 68 years old with history of cough: Shortness of breath TECHNIQUE: XR chest 2V views of the chest are obtained. FINDINGS: Scattered senescent parenchymal changes noted. Hyperinflation compatible with COPD. No evidence for infiltrate. No evidence for atelectasis. Heart size is stable. Mediastinal structures are stable and grossly unremarkable. No evidence for hilar prominence. Degenerative changes dorsal spine. IMPRESSION: 1. No evidence for acute pulmonary disease. [facility], , 04/30/2024 7:06 AM
--- NOTE | 2024-04-30 07:24 | ED ---
URI HPI - General Chief Complaint: Upper Respiratory Infection Stated Complaint: Cough, Shortness of breath, Body Aches Time Seen by Provider: 04/30/24 06:16 Source: patient, RN notes reviewed Mode of arrival: ambulatory Limitations: no limitations - History of Present Illness Initial Comments: 68-year-old female presents emergency department with chief complaint of fever cough congestion body aches. Patient states symptoms started over the weekend. Patient states that her has similar symptoms. Patient states she has nonproductive cough, body aches. Patient denies any GI symptoms no neck pain or neck stiffness does complain headache body aches taking Tylenol. - Related Data Home Medications Medication Instructions Recorded Confirmed Montelukast [Singulair] 10 mg PO HS 11/09/18 01/15/22 Atorvastatin [Lipitor] 10 mg PO DAILY 11/19/21 01/15/22 Cholecalciferol [Vitamin D3 (25 25 mcg PO DAILY 11/19/21 01/15/22 Mcg = 1000 Iu)] Omeprazole [PriLOSEC] 40 mg PO DAILY 11/19/21 01/15/22 Potassium Chloride [Klor-Con M10] 10 meq PO DAILY 11/19/21 01/15/22 hydroCHLOROthiazide [Hydrodiuril] 25 mg PO DAILY 11/19/21 01/15/22 metFORMIN HCL [Glucophage] 1,000 mg PO BID 11/19/21 01/15/22 Previous Rx's Medication Instructions Recorded Oseltamivir [Tamiflu] 75 mg PO Q12HR #10 cap 04/30/24 Allergies Allergy/AdvReac Type Severity Reaction Status Date / Time aspirin Allergy Unknown SKIN TURNS Verified 04/30/24 06:23 RED shellfish derived [Shrimp] Allergy Unknown Rash/Hives Verified 04/30/24 06:23 Iodinated Contrast Media Allergy Rash/Hives Verified 04/30/24 06:23 [Iodinated Contrast- Oral and IV Dye] lisinopril Allergy Swelling Verified 04/30/24 06:23 SALT Allergy Unknown Rash/Hives Uncoded 04/30/24 06:23 Review of Systems ROS Statement: Those systems with pertinent positive or pertinent negative responses have been documented in the HPI. ROS Other: All systems not noted in ROS Statement are negative. Past Medical History Past Medical History: Diabetes Mellitus, GERD/Reflux, Hypertension Additional Past Medical History / Comment(s): RLS, positive cologuard History of Any Multi-Drug Resistant Organisms: None Reported Past Surgical History: Section, Cholecystectomy, Hernia Repair Additional Past Surgical History / Comment(s): colonoscopy, EGD Past Anesthesia/Blood Transfusion Reactions: No Reported Reaction Past Psychological History: No Psychological Hx Reported Smoking Status: Current every day smoker Past Alcohol Use History: None Reported Past Drug Use History: None Reported - Past Family History Mother Family Medical History: No Reported History General Exam Limitations: no limitations General appearance: alert, in no apparent distress Head exam: Present: atraumatic, normocephalic, normal inspection Eye exam: Present: normal appearance, PERRL, EOMI. Absent: scleral icterus, conjunctival injection, periorbital swelling ENT exam: Present: normal exam, mucous membranes moist Neck exam: Present: normal inspection. Absent: tenderness, meningismus, lymphadenopathy Respiratory exam: Present: normal lung sounds bilaterally. Absent: respiratory distress, wheezes, rales, rhonchi, stridor Cardiovascular Exam: Present: normal rhythm, tachycardia, normal heart sounds. Absent: systolic murmur, diastolic murmur, rubs, gallop, clicks GI/Abdominal exam: Present: soft, normal bowel sounds. Absent: distended, tenderness, guarding, rebound, rigid Course Vital Signs 04/30/24 06:24 Temperature 99.8 F H Pulse Rate 109 H Respiratory 18 Rate Blood Pressure 148/72 O2 Sat by Pulse 94 L Oximetry Medical Decision Making - Medical Decision Making Was pt. sent in by a medical professional or institution (, PA, INTERNAL REVENUE SERVICE AGENT, urgent care, hospital, or fpc...) When possible be specific @ -No Did you speak to anyone other than the patient for history (EMS, parent, family, police, friend...)? What history was obtained from this source @ -No Did you review nursing and triage notes (agree or disagree)? Why? @ -I reviewed and agree with nursing and triage notes Were old charts reviewed (outside hosp., previous admission, EMS record, old EKG, old radiological studies, urgent care reports/EKG's, fpc records)? Report findings @ -No old charts were reviewed Differential Diagnosis (chest pain, altered mental status, abdominal pain women, abdominal pain men, vaginal bleeding, weakness, fever, dyspnea, syncope, headache, dizziness, GI bleed, back pain, seizure, CVA, palpatations, mental h ealth, musculoskeletal)? @ -COVID 19, RSV, influenza, pneumonia, acute bronchitis, URI, this list is not all inclusive EKG interpreted by me (3pts min.). @ -[None X-rays interpreted by me (1pt min.). @ -Chest x-ray shows no acute cardiopulmonary process. CT interpreted by me (1pt min.). @ -[None done U/S interpreted by me (1pt. min.). @ -None done What testing was considered but not performed or refused? (CT, X-rays, U/S, labs)? Why? @ -None What meds were considered but not given or refused? Why? @ -None Did you discuss the management of the patient with other professionals (professionals i.e. , PA, INTERNAL REVENUE SERVICE AGENT, lab, RT, psych nurse, social work therapist, bench inspector, teacher, chief talent officer, case loader operator)? Give summary @ -No Was smoking cessation discussed for >3mins.? @ -No Was critical care preformed (if so, how long)? @ -No Were there social determinants of health that impacted care today? How? (Homelessness, low income, unemployed, alcoholism, drug addiction, transportation, low edu. Level, literacy, decrease access to med. care, nursing home, rehab)? @ -No Was there de-escalation of care discussed even if they declined (Discuss DNR or withdrawal of care, Hospice)? DNR status @ -No What co-morbidities impacted this encounter? (DM, HTN, Smoking, COPD, CAD, Cancer, CVA, ARF, Chemo, Hep., AIDS, mental health diagnosis, sleep apnea, morbid obesity)? @ -None Was patient admitted / discharged? Hospital course, mention meds given and route, prescriptions, significant lab abnormalities, going to OR and other pertinent info. @ -Discharge patient is influenza A positive. Patient started on Tamiflu. P atient be discharged in stable condition with antipyretics. Patient was given strict return parameters. Undiagnosed new problem with uncertain prognosis? @ -No Drug Therapy requiring intensive monitoring for toxicity (Heparin, Nitro, Insulin, Cardizem)? @ -No Were any procedures done? @ -No Diagnosis/symptom? @ -Influenza A Acute, or Chronic, or Acute on Chronic? @ -Acute Uncomplicated (without systemic symptoms) or Complicated (systemic symptoms)? @ -Uncomplicated Side effects of treatment? @ -No Exacerbation, Progression, or Severe Exacerbation? @ -No Poses a threat to life or bodily function? How? (Chest pain, [place], [place], pneumonia, PE, COPD, DKA, ARF, appy, cholecystitis, CVA, Diverticulitis, Homicidal, Suicidal, threat to staff... and all critical care pts) @ -No Disposition Clinical Impression: Influenza A Disposition: HOME SELF-CARE Condition: Stable Instructions (If sedation given, give patient instructions): Influenza (ED) Additional Instructions: Please return to the Emergency Department if symptoms worsen or any other concerns. Prescriptions: Oseltamivir [Tamiflu] 75 mg PO Q12HR #10 cap Is patient prescribed a controlled substance at d/c from ED?: No Referrals: Tamiko Vincent DO [Primary Care Provider] - 1-2 days Time of Disposition: 07:24
[2024-04-30 07:34] LABS: Influenza A Not Detected (Not Detectd); Influenza B Not Detected (Not Detectd); RSV Not Detected (Not Detectd)
[2024-04-30] MEDS: ACETAMINOPHEN TAB 500 MG TAB PO STA (07:59)
[2024-04-30 08:43] VITALS: BP 119/77; PULSE 85; RESP 18; TEMP 99.1
== END 2024-04-30 08:44 | disposition home or self-care (01) ==
LOC: EC 06:10
DX: J10.1 Influenza due to other identified influenza virus with other respiratory manifestations (principal); F17.200 Nicotine dependence, unspecified, uncomplicated; Z88.6 Allergy status to analgesic agent; Z91.013 Allergy to seafood; Z91.041 Radiographic dye allergy status; Z91.048 Other nonmedicinal substance allergy status; Z88.8 Allergy status to other drugs, medicaments and biological substances
CPT/HCPCS: 71046; 87636; 99285